=== PATIENT | male | born 1955 | race Caucasian/White ===

== ENCOUNTER 2017-02-20 14:08 | Observation (INO) ==
[2017-02-20] MEDS ORDERED: NS 500 ML ONE (18:51)
[2017-02-20] MEDS ORDERED: TYLENOL PO ONE (19:45)
[2017-02-20] MEDS ORDERED: BENADRYL IV ONE (19:45)
[2017-02-20] MEDS ORDERED: LASIX IV ONE (19:46)
[2017-02-21 13:22] LABS: EOS# 0.09 X1000 (0.0-0.7); EOS% 1.1 % (0.0-10.0); HEMATOCRIT 30.1 % (42.0-52.0); HEMOGLOBIN 9.8 g/dL (14.0-18.0); IMM GRAN# 0.08 X1000 (0.0-0.04); LYMPH# 1.54 X1000 (1.2-3.4); LYMPH% 19.4 % (20.5-51.1); MANUAL DIFF NEEDED? YES; MCH 28.7 PG (27-31); MCHC 32.6 g/dL (33-37); MCV 88.3 FL (81-99); MONO# 0.63 X1000 (0.11-0.59); MONO% 7.9 % (1.7-9.3); MPV 8.7 FL (7.4-10.4); NEUT% 69.6 % (42.2-75.2); PLT 226 X1000 (130-400); RBC 3.41 XMIL (4.7-6.1)
[2017-02-21 13:50] LABS: LYMPHS 12 % (21-51); MONO 3 % (1-9)
[2017-02-21] MEDS ORDERED: XANAX PO PRN (17:05)
[2017-02-21] MEDS ORDERED: ZOFRAN PO PRN (17:05)
[2017-02-21] MEDS ORDERED: BIDEX PO PRN (17:05)
--- NOTE | 2017-02-21 17:08 | CONSULTATION ---
DATE OF CONSULTATION: 02/21/2017 REASON FOR REFERRAL: Anemia, GI bleed. Patient reports after following with Dr. Meraz for his chemotherapy yesterday he was found to have a Hemoccult-positive stool and anemia. He was transferred to the hospital for admission. Information is obtained from the patient and his . He reports in November he was admitted to the hospital after having episodes of dizziness and passing out. During evaluation, he was diagnosed with renal cancer. He had surgery in November by Dr. Bhandari. He has been following with Dr. Meraz for chemotherapy. Over the last several months he has noticed black stools. He states they are not coffee-ground, but dark black. He also reports episodes of diarrhea versus constipation. No reported nausea or vomiting. He reports occasional abdominal pain. He does report dizziness and lightheadedness. He denies chest pain. He reports shortness of breath. He does have a history of sleep apnea and uses a CPAP machine. He has a history of CVA. He reports abdominal gas. He states he has never had an EGD or colonoscopy. Patient has a history of blood clots in the left jugular, left arm, right knee and below the knee. He is on Xarelto. He reports his last dose was on Sunday. PAST MEDICAL HISTORY: Recent diagnosis of kidney cancer, status post surgery and currently undergoing chemotherapy. History of blood clots, diabetes, history of stroke. PAST SURGICAL HISTORY: Kidney surgery related to kidney cancer in November. CURRENT MEDICATIONS: He has a port placed into the right chest. History of tonsillectomy. Multiple cystectomy. Teeth removal. Sinus surgery. Plastic surgery. SOCIAL HISTORY: He is . He works at [employer]. He has 3 children. He is a former smoker. ALLERGY: Fentanyl causing confusion. Penicillin causing shortness of breath. HOME MEDICATIONS: Guaifenesin as needed. Hydroxyzine 10 mg as needed. Lunesta 3 mg daily. Insulin Humulin R as needed. Xanax 0.5 mg twice a day as needed. Zolpidem 12.5 mg every night. Xarelto 20 mg daily. Zofran 4 mg every 4 hours as needed. [place] 10/325, 1 every 4 hours as needed. Glucophage 500 twice a day. Lantus 35 units subcutaneous daily. Cymbalta 60 mg in the morning. Cymbalta 30 mg at night. Niaspan 500 mg twice a day. Glyburide 5 mg 3 times a day. Lasix 80 mg daily. Janumet 5/500 twice a day. Potassium 10 mEq daily. Zocor 20 mg twice a day. REVIEW OF SYSTEMS: HEENT: Report some dizziness and lightheadedness. He has had presyncopal episodes per his report. Cardiovascular: No reported chest pain or palpitations. Pulmonary: Report some shortness of breath. He does have a history of sleep apnea and uses a CPAP machine at home. GI: Per HPI. : With recent diagnosis of kidney cancer status post surgery and currently receiving chemotherapy, followed by Dr. Meraz. Neurological: History of CVA. Other history of blood clots to the left jugular, left arm, right leg. PHYSICAL EXAMINATION: Vital signs: Temperature 98.3 degrees, pulse 109, respirations 18, blood pressure 125/64. General: Patient is awake and alert, in no acute distress. HEENT: Normocephalic, atraumatic. Pupils equal, round, reactive to light. Cardiovascular: Regular rate and rhythm. Respiratory: Lungs sound essentially clear bilaterally. Abdomen: Morbidly obese. Abdomen is mildly tender with palpation, but soft with positive bowel sounds. Neurologically: Cranial nerves 2-12 grossly intact. Patient is awake, alert, oriented to person, place and time. Extremities: Discoloration to bilateral lower extremities. Pedal pulses stronger on left than right pedal area. He does have history of blood clots in the right lower leg. DIAGNOSTIC RESULTS: Laboratory: Hematology: White count 7.95, hemoglobin 9.8, hematocrit 30.1, MCV 88.3, platelet 226,000. Chemistry from Dr. Meraz's office yesterday on 02/20/2017 showed sodium 129, potassium 3.8, chloride 95, CO2 22.6, BUN 22, creatinine 1.36, glucose 404. ASSESSMENT AND PLAN: 1. Anemia. 2. Hemoccult-positive stool. 3. Dizziness/presyncope. 4. Melena. 5. History of renal cell carcinoma, status post surgery. 6. Chemotherapy treatment. 7. Anticoagulation use due to history of blood clots. 8. History of blood clots. 9. Sleep apnea. 10. Diabetes. 11. History of cerebrovascular accident. PLAN: Continue supportive care. Continue to monitor hemoglobin and hematocrit. Monitor for active bleeding. We will plan to proceed with esophagogastroduodenoscopy tomorrow. Further plans will be made according to findings. I have discussed the plan with the patient, along with benefits and risks of the procedure and he wishes to proceed. I have discussed this case with Dr. Lopez. Continue to monitor hemoglobin and hematocrit. Transfuse packed red blood cells as needed. Further plans to be made according to findings. Thank you for this consult. Dictated by MARICARMEN Baum for Gentry Lopez MD cc: MARICARMEN Deleon MD Sammy Becdach, MD
[2017-02-21] MEDS: CYMBALTA PO SCH ×3 (17:36→21:30)
[2017-02-21] MEDS: LASIX PO SCH (17:36)
[2017-02-21] MEDS: KLOR-CON PO SCH (17:37)
[2017-02-21] MEDS: HYDROXYZINE PO PRN ×2 (17:53→23:43)
[2017-02-21] MEDS: HUMULIN R SUBQ SCH (17:54)
[2017-02-21] MEDS: NORCO-10 PO PRN ×2 (19:40→23:31)
[2017-02-21] MEDS: JANUVIA PO SCH ×2 (19:40→21:31)
[2017-02-21] MEDS: ZOCOR PO SCH ×2 (19:40→21:31)
[2017-02-21] MEDS: GLUCOPHAGE PO SCH ×2 (19:40→21:31)
[2017-02-21] MEDS ORDERED: GLUCOPHAGE PO SCH (21:00)
[2017-02-21] MEDS: NIASPAN PO SCH (21:31)
[2017-02-22] MEDS: NORCO-10 PO PRN (02:17)
[2017-02-22] MEDS: HUMULIN R SUBQ SCH ×4 (03:15→17:00)
[2017-02-22] MEDS: HYDROXYZINE PO PRN (06:01)
[2017-02-22] MEDS ORDERED: INSULIN PEN NEEDLES ONE (07:17)
[2017-02-22] MEDS ORDERED: LANTUS SUBQ SCH (09:00)
[2017-02-22] MEDS ORDERED: DIPRIVAN 1% ONE (14:16)
[2017-02-22] MEDS ORDERED: ANESTHESIA PB SET 88 IN 5742 ONE (14:28)
[2017-02-22] MEDS ORDERED: LR 500 ML ONE (14:28)
[2017-02-22] MEDS ORDERED: XYLOCAINE-MPF 2% ONE (14:28)
[2017-02-22 15:12] VITALS: BP 121/44
[2017-02-22] MEDS: DIABETA PO SCH ×3 (15:44→16:58)
[2017-02-22] MEDS: JANUVIA PO SCH (15:44)
[2017-02-22] MEDS: GLUCOPHAGE PO SCH (15:44)
[2017-02-22] MEDS: NIASPAN PO SCH (15:46)
[2017-02-22] MEDS: ZOCOR PO SCH (15:46)
[2017-02-22] MEDS: KLOR-CON PO SCH (16:57)
[2017-02-22] MEDS: CYMBALTA PO SCH (16:57)
[2017-02-22] MEDS: LASIX PO SCH (16:58)
[2017-02-22] MEDS ORDERED: HEPARIN ONE (17:46)
[2017-02-22] MEDS ORDERED: AMBIEN PO SCH (21:00)
--- NOTE | 2017-02-22 22:39 | OPERATIVE NOTE ---
PROCEDURE DATE: 02/22/2017 PROCEDURE: Esophagogastroduodenoscopy and hemorrhage control. PREOPERATIVE DIAGNOSIS: 1. Gastrointestinal bleed. 2. Anemia secondary to gastrointestinal bleed. POSTOPERATIVE DIAGNOSIS: Erosive gastritis in body and antrum, treated. MEDICATION: MAC as per Anesthesia. SCOPE USED: Olymp[employer] GIF HQ190. HISTORY: This is a 61-year-old, white male admitted to the hospital with history of melena and was found to be anemic requiring transfusion. Endoscopy was done for diagnostic as well as therapeutic purposes. DESCRIPTION OF PROCEDURE: Informed consent was obtained from the patient. The procedure, risks, benefits, alternatives were explained in layman's terms. He understood. All his pertinent questions were answered. Patient was brought to the endoscopy unit and was premedicated as per Anesthesia. After adequate sedation, while he was lying in left lateral position, the gastroscope was introduced into the posterior pharynx and advanced under direct vision into the esophagus. Esophagus in its entire length appeared to be normal. No esophagitis, webs, rings, varices were seen. Scope was then passed through the esophagus into the stomach. Stomach was examined both in straight and retroflexed view, which revealed erosive gastritis in the upper part of the body close to the fundus. These were linear erosions and had hemorrhaging spot or visible vessel, most likely the source of his bleeding when he was coagulopathic. Using the heater probe, cauterized the spot applying 10-15 joules of current multiple times getting good cautery. There was another lesion seen at the antrum just at the pyloric area which appeared to be hyperemic and oozing. I used the heater probe and cauterized this also with 15 joules of current with multiple applications. I did not see any other AVM or mass or bleeding. The scope was then passed through the pylorus into the duodenal bulb, and then 2nd part of duodenum. Both appeared to be normal. Again, no evidence of active bleeding or stigmata of recent bleed seen in the duodenum. The scope was withdrawn. Patient tolerated the procedure well. No complications noted. Patient was then transferred to the recovery area in a stable condition. IMPRESSION: Erosive gastritis most likely the source of bleeding, treated. RECOMMENDATION: I would continue proton pump inhibitor and use the anticoagulant judiciously. Recheck hemoglobin and hematocrit and transfuse as necessary. Patient tells me that he has never had a colonoscopy. He will need that. This can be done as an outpatient once he is stable. I will hold off anticoagulation until he gets his colonoscopy within a week or so. I have explained the findings and plan to the patient. He understands. All his pertinent questions answered. cc: MD Miah Aly MD
--- NOTE | 2017-02-23 14:08 | HISTORY AND PHYSICAL ---
CHIEF COMPLAINT: Profound anemia with fecal occult blood test positive. HISTORY OF PRESENT ILLNESS: Mr. 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 He is currently being treated with Torisel. The patient presented to clinic with complaints of severe fatigue. CBC was obtained and hemoglobin was found to be 6.7. Additionally the patient underwent fecal occult blood testing which was positive. Patient is being admitted for transfusion of packed red blood cells as well as GI workup to determine source of potential GI bleed. PAST MEDICAL HISTORY: 1. History of DVT and PE. 2. Hypertension. 3. Diabetes mellitus type 2. 4. Stage IV renal cell clear cell carcinoma. 5. Anemia. FAMILY HISTORY: Negative for any hematologic or oncologic problem. SOCIAL HISTORY: The patient does smoke 1 pack cigarettes daily. He does not use alcohol or illicit drugs. MEDICATIONS ON ADMISSION: 1. Klor-Con. 2. Glyburide. 3. Xanax. 4. Janumet. 5. Lasix. 6. Lantus insulin. 7. Cymbalta. 8. Xarelto. 9. Hydrocodone/acetaminophen. 10. Zolpidem. 11. Benadryl. 12. Zofran ODT. 13. Mucinex. 14. Magic mouthwash. 15. Humulin R insulin. 16. Hydroxyzine. 17. Lunesta. ALLERGIES: Fentanyl patch, Mobic and penicillins. REVIEW OF SYSTEMS: A 14 point review of systems was obtained and is negative except for as mentioned in HPI. PHYSICAL EXAM: Mr. Cameron is a 61-year-old male, well developed, morbidly obese lying supine in bed in no immediate distress. VITAL SIGNS: Temperature 98.3, blood pressure 125/64, heart rate 109, respirations 18, O2 saturation is 94% on room air. HEENT: Normocephalic, atraumatic. Mucous membranes are pink and moist. Sclerae is anicteric. Extraocular movements intact. NECK: Supple. LUNGS: Clear to auscultation bilaterally. Chest expansion is equal bilaterally. CV: S1, S2 is heard without murmur, rub or gallop. ABDOMEN: Soft, obese, nondistended, nontender. Bowel sounds are positive in all quadrants. No rebound or guarding noted. EXTREMITIES: Without clubbing, cyanosis, or edema. DERMATOLOGIC: No rashes, bruises or lesions. NEUROLOGIC: The patient is awake, alert, and oriented x3. He has no focal deficit at this time. LABORATORY DATA: Hemoglobin 6.7, hematocrit 21.9, white blood cell count 8.5, platelets 243,000, ANC 5.4. Sodium 129, potassium 3.8, chloride 95, CO2 is 22.6, BUN 22.0, creatinine 1.36, glucose 404. LFTs are within normal limits. ASSESSMENT AND PLAN: 1. Symptomatic anemia with a hemoglobin of 6.7 and a fecal occult blood test that is positive. We will transfuse 3 units packed red blood cells. Additionally, we will consult Dr. Lopez for GI evaluation with EGD plus or minus colonoscopy. 2. Stage IV renal clear cell carcinoma currently on Torisel. We will hold treatment until the patient's acute illness passes. 3. Recent deep vein thrombosis on Xarelto. We will hold Xarelto secondary to bleeding. We will ordered SCDs for DVT prophylaxis. 4. Uncontrolled diabetes mellitus type 2. We will place the patient on a sliding scale insulin level 2. 5. We will make further recommendations pending outcomes. The above reflects the history exam, assessment and plan of Dr. Meraz. Dictated by MARICARMEN Means for Miah Meraz MD cc: MARICARMEN Means MD
--- NOTE | 2017-02-23 16:54 | DISCHARGE SUMMARY ---
ADMISSION DATE: 02/20/2017 DISCHARGE DATE: 02/22/2017 ADMITTING PHYSICIAN: Dr. Miah Meraz CONSULTATIONS: Gentry Lopez MD HISTORY OF PRESENT ILLNESS/HOSPITAL: Mr. David Cameron is a patient who is well known to us with a history of stage IV renal clear cell carcinoma currently on Torisel. The patient presented to the [facility] for follow up with Dr. Meraz. On the day of hospital admission he had reports of profound fatigue. CBC was obtained and hemoglobin was found to be 6.7. Additionally the patient was tested for fecal occult blood and was found to be positive. It was decided that the patient would be admitted for transfusion of packed red blood cells as well as GI work up. The patient was seen by Dr. Lopez in consult who proceeded with an EGD. EGD revealed erosive gastritis which was most likely the source of bleeding. The patient was plus place skis may the patient was placed on a proton pump inhibitor with recommendations for anticoagulant use judiciously. Additionally, the patient has been scheduled for outpatient colonoscopy by Dr. Lopez and will continue off anticoagulation until after the colonoscopy. Upon discharge the patient's hemoglobin was found to be 9.8. The patient reported much improvement in his symptoms of fatigue. On discharge the patient was deemed appropriate for discharge. He will follow up in clinic with Dr. Meraz in 1 week. DISCHARGE MEDICATIONS: 1. Klor-Con. 2. Glyburide. 3. Xanax. 4. Janumet. 5. Lasix. 6. Lantus insulin. 7. Cyanocobalamin. 8. Cymbalta. 9. Xarelto. 10. [place]. 11. Zolpidem. 12. Benadryl. 13. Zofran. 14. Mucinex. 15. Magic mouthwash. 16. Humulin R insulin. 17. Hydroxyzine. 18. Lunesta. DISCHARGE INSTRUCTIONS: The patient has been instructed to return to the emergency department or call with any rectal bleeding, or with any worsening of symptoms. The above reflects the history, exam, assessment and plan of Dr. Meraz. Dictated by MARICARMEN Means for Miah Meraz MD cc: MARICARMEN Means MD
== END 2017-02-22 18:40 | disposition home or self-care (01) ==
LOC: DIRADM → 3N 16:54
PROVIDERS: ADMIT Internal Medicine Hematology & Oncology; ATTEND Internal Medicine Hematology & Oncology
PROC: EN.HEAT (2017-02-22 13:39)

== ENCOUNTER 2017-03-08 13:55 | Inpatient (IN) ==
--- NOTE | 2017-03-08 15:37 | Diag Imaging Result Document ---
PROCEDURE NAME: CHEST-PORTABLE - 03/08/2017 PORTABLE CHEST X-RAY: COMPARISON: 12/22/2016. FINDINGS: There is a stable right chest port. Stable cardiomegaly. There is worsening pulmonary vascular congestion. There are diffuse central infiltrates bilaterally suggesting pulmonary edema. No pneumothorax or large effusion. IMPRESSION: Cardiomegaly. Probable pulmonary edema.
[2017-03-08 15:51] LABS: ALLEN TEST YES; BE 4.8 mmoll (-3.0-3.0); BLOOD TYPE ARTERIAL; DRAW SITE R RADIAL; METHB 1.5 % (0.0-1.5); O2(CT) 12.8 mL/dL (15.0-23.0); PCO2(98.6) 49 mmHg (35-45); PO2(98.6) 83 mmHg (60-100); SAMPLE BLOOD; SAO2 98.1 % (95.0-100.0); THB 9.6 g/dL (11.5-17.4)
[2017-03-08 15:52] LABS: MODALITY CANNULA
[2017-03-08 15:57] LABS: MANUAL DIFF NEEDED? NO
[2017-03-08 16:05] LABS: BASO% 0.3 % (0.0-0.8); EOS# 0.01 X1000 (0.0-0.7); EOS% 0.1 % (0.0-10.0); HEMATOCRIT 31.2 % (42.0-52.0); HEMOGLOBIN 9.3 g/dL (14.0-18.0); IMM GRAN# 0.02 X1000 (0.0-0.04); IMM GRAN% 0.2 % (0.0-0.5); LYMPH# 0.93 X1000 (1.2-3.4); LYMPH% 8.5 % (20.5-51.1); MCH 28.1 PG (27-31); MCHC 29.8 g/dL (33-37); MCV 94.3 FL (81-99); MONO# 0.77 X1000 (0.11-0.59); MPV 8.4 FL (7.4-10.4); NEUT% 83.9 % (42.2-75.2); PLT 407 X1000 (130-400); RBC 3.31 XMIL (4.7-6.1)
[2017-03-08 16:14] LABS: INR 1.28; PROTIME 13.6 Seconds (9.2-11.7)
[2017-03-08 16:18] LABS: PTT 56.3 Seconds (22.0-36.0)
[2017-03-08 16:20] LABS: AGAP 13; ALBUMIN 3.6 g/dL (3.5-5.0); ALKALINE PHOSPHATASE 93 U/L (32-122); BUN 16 mg/dL (8-22); CALCIUM 9.1 mg/dL (8.8-10.2); CHLORIDE 93 mmol/L (98-107); CK PROFILE 130 U/L (24-204); COSMO 275; GOT 18 U/L (10-34); GPT 8 U/L (10-44); MAGNESIUM 2.1 mg/dL (1.5-2.7); POTASSIUM 4.5 mmol/L (3.5-5.1); SODIUM 133 mmol/L (136-145); TCO2 27 mmol/L (25-35); TOTAL BILIRUBIN 0.46 mg/dL (0.20-1.00)
--- NOTE | 2017-03-08 19:06 | PROVIDER DOCUMENTATION ---
HPI-Fever - General Chief Complaint: Possible Sepsis-D Stated Complaint: AMS/WEAKNESS Time Seen by Provider: 03/08/17 14:42 Source: patient, old records Allergies/Adverse Reactions: Patient Allergies Allergy/AdvReac Type Severity Reaction Status Date / Time fentanyl Allergy Unknown Unknown Verified 03/08/17 14:43 Penicillins Allergy Unknown SHORTNESS Verified 03/08/17 14:43 OF BREATH Home Medications: Home Medication List Medication Instructions Recorded Confirmed Last Taken Type Alprazolam [Xanax] 0.5 mg PO BID PRN 07/05/14 03/08/17 02/26/17 History Furosemide [Lasix] 80 mg PO DAILY 07/05/14 03/08/17 03/08/17 09:00 History Glyburide 5 mg PO TID 07/05/14 03/08/17 03/08/17 09:00 History Insulin Glargine [Lantus] 35 units SUBQ QAM 07/05/14 03/08/17 03/08/17 09:00 History Metformin [Glucophage] 1,000 mg PO BID 07/05/14 03/08/17 03/08/17 09:00 History Potassium Chloride E.r. [Klor-Con] 10 meq PO DAILY 07/05/14 03/08/17 03/08/17 09 :00 History Sitagliptin Phos/Metformin HCl 1 each PO BID 07/05/14 03/08/17 03/08/17 09:00 History [Janumet 50-500 mg Tablet] Duloxetine [Cymbalta] 60 mg PO QAM 11/11/16 03/08/17 03/08/17 09:00 History Guaifenesin 1,200 mg PO DAILY PRN 11/11/16 03/08/17 03/08/17 09:00 History SIMVAstatin [Zocor] 20 mg PO BID #0 tablet 11/27/16 03/08/17 03/08/17 09:00 Rx Hydrocodone/Acetaminophen [[place] 1 each PO Q4H PRN PRN #20 tablet 12/22/1603/0802/26/17 Rx 10-325 Tablet] Ondansetron HCl [Zofran] 4 mg PO Q4H PRN PRN #20 tablet 02/10/17 04/27/17 04/17/ 17 Rx Duloxetine [Cymbalta] 30 mg PO QHS 02/08/17 03/08/17 03/07/17 21:00 History Niacin E.r. [Niaspan] 500 mg PO BID 02/08/17 03/08/17 03/08/17 09:00 History Eszopiclone [Lunesta] 3 mg PO DAILY 02/14/17 03/08/17 03/08/17 09:00 History Hydroxyzine HCl 10 mg PO BID PRN PRN 02/14/17 03/08/17 02/26/17 History Insulin Regular, Human [Humulin R] See Protocol SQ 4XDAY PRN PRN 02/20/1702/25/17 History Rivaroxaban [Xarelto] 10 mg PO DAILY 02/20/17 03/08/17 03/08/17 09:00 History Zolpidem Tartrate [Zolpidem 12.5 mg PO QHS 02/20/17 03/08/17 03/07/17 21:00 History Tartrate ER] Omeprazole 40 mg PO DAILY #30 capsule. 02/22/17 03/08/17 03/08/17 09:00 Rx - History of Present Illness-Fever Nature of Presenting Problem: 61 yo WM brought to ER brandon of fever and AMS. He is a poor historian but reviewing the chart, I see that he was found to have renal cell cancer in Nov of this year and is being followed by Dr Grider. He does have a port, but states that he is not on chemotherapy. Fever Severity/Quality: reports: low grade Onset/Duration: reports: unsure Severity: reports: moderate Context: reports: decreased mental status, confusion, indwelling CVC Recent Illness?: reports: other (see HPI) Fever Therapy SYSTEMS DEVELOPMENT CONSULTANT: Initiated Ibuprofen Cognitive Baseline: alert, oriented x3 Associated Symptoms: reports: fatigue, fever/chills, loss of appetite Similar Symptoms Previously?: Yes Recently seen or treated by another doctor?: Yes - Glascow Coma Score Best Eye Response (Albert): (4) open spontaneously Best Verbal Response (Albert): (4) confused conversation Best Motor Response (Albert): (6) obeys commands Albert Total: 14 Review of Systems - Adult - REVIEW OF SYSTEMS - ADULT Constitutional: reports: see HPI Eyes: reports: no symptoms reported Ears, Nose, Mouth & Throat: reports: no symptoms reported Cardiovascular: reports: edema, orthopnea, poor circulation Respiratory: reports: cough, shortness of breath Gastrointestinal: reports: abdominal pain Genitourinary: reports: frequent UTI's Musculoskeletal: reports: no symptoms reported Integumentary: reports: skin sores/ulcer, skin thickening Neurological: reports: see HPI Psychiatric: reports: no symptoms reported Endocrine: reports: no symptoms reported Hematologic/Lymphatic: reports: low blood count Allergic/Immunologic: reports: no symptoms reported Past History - Adult - PAST MEDICAL HISTORY-ADULT Review of Records: reports: Old Records Reviewed, Nursing Assessment Review, Medications Reviewed Cardiovascular: reports: CAD, CHF, HTN Respiratory: reports: COPD, sleep apnea Gastrointestinal: reports: GERD Musculoskeletal: reports: chronic pain Endocrine/Immune: reports: other (DVT) - IMMUNIZATION STATUS Childhood Immunizations: See Nurse Assessment Flu Vaccine: See Nurse Assessment Physical Exam-General - PHYSICAL EXAM-ADULT Initial Vital Signs Reviewed: Yes - CONSTITUTIONAL General Appearance: alert, obese, slow to respond - EYES Eyes: PERRL/EOMI, pink conjunctivae - HEAD, EARS, NOSE, MOUTH & THROAT HENMT: normocephalic/atraumatic - NECK Neck: non-tender, full range of motion, supple, normal inspection - RESPIRATORY Respiratory: no respiratory distress, rales, increased rate. negative: lungs clear, normal breath sounds, no pleuratic chest pain - CARDIOVASCULAR Cardiovascular: regular rate, rhythm, no gallop, no JVD, tachycardia. negative : no edema, gallop/S3 - GASTROINTESTINAL (ABDOMEN) Abdominal Exam: non tender, no organomegaly, no pulsatile mass, mass - LYMPHATIC Lymphatic: no adenopathy - MUSCULOSKELETAL Back Exam: normal inspection Extremity: normal range of motion, non-tender Peripheral Pulses: radial (R): 1+, radial (L): 1+ - SKIN Integumentary: normal color, normal turgor, rash - NEUROLOGIC Neurologic: grossly normal - PSYCHIATRIC Psych/Mental Status: negative: normal thought content Progress - PLAN OF CARE/RESULTS Progress/Plan/Lab Results: Vital Signs - 8 hr 03/08/17 14:00 03/08/17 15:40 Temperature 99.4 F Pulse Rate 118 H Respiratory Rate 38 H Blood Pressure 144/107 O2 Sat by Pulse Oximetry 83 L 96 Laboratory Results - last 24 hr 03/08/17 03/08/17 03/08/17 15:30 15:30 15:30 WBC 11.00 H RBC 3.31 L Hgb 9.3 L Hct 31.2 L MCV 94.3 MCH 28.1 MCHC 29.8 L RDW Std Deviation 18.7 H Plt Count 407 H MPV 8.4 Immature Gran % (Auto) 0.2 Neut % (Auto) 83.9 H Lymph % (Auto) 8.5 L Coke % (Auto) 7.0 Eos % (Auto) 0.1 Baso % (Auto) 0.3 Immature Gran # (Auto) 0.02 Neut # (Auto) 9.24 H Lymph # (Auto) 0.93 L Coke # (Auto) 0.77 H Eos # (Auto) 0.01 Baso # (Auto) 0.03 PT INR PTT (Actin FS) Specimen Type Sample Site pH pCO2 pO2 HCO3 Base Excess Oxyhemoglobin ABG O2 Sat (Calculated) ABG O2 Saturation ABG Carboxyhemoglobin ABG Methemoglobin Eddi Test A-a O2 Difference Total Hemoglobin Lactate Liter Flow Blood Gas Modality FiO2 % Sodium 133 L Potassium 4.5 Chloride 93 L Carbon Dioxide 27 Anion Gap 13 BUN 16 Creatinine 1.1 Estimated GFR/1.73 m2 > 60 BUN/Creatinine Ratio 15 Glucose 238 H Calculated Osmolality 275 Calcium 9.1 Magnesium 2.1 Total Bilirubin 0.46 AST 18 ALT 8 L Alkaline Phosphatase 93 Creatine Kinase 130 Troponin T Total Protein 7.0 Albumin 3.6 Globulin 3.4 Albumin/Globulin Ratio 1.1 Plasma Lactate 0.9 03/08/17 03/08/17 03/08/17 15:30 15:30 15:40 WBC RBC Hgb Hct MCV MCH MCHC RDW Std Deviation Plt Count MPV Immature Gran % (Auto) Neut % (Auto) Lymph % (Auto) Coke % (Auto) Eos % (Auto) Baso % (Auto) Immature Gran # (Auto) Neut # (Auto) Lymph # (Auto) Coke # (Auto) Eos # (Auto) Baso # (Auto) PT 13.6 H INR 1.28 PTT (Actin FS) 56.3 H Specimen Type ARTERIAL Sample Site R RADIAL pH 7.40 pCO2 49 H pO2 83 HCO3 28.6 H Base Excess 4.8 H Oxyhemoglobin 93.8 L ABG O2 Sat (Calculated) 12.8 L ABG O2 Saturation 98.1 ABG Carboxyhemoglobin 2.90 H ABG Methemoglobin 1.5 Eddi Test YES A-a O2 Difference 112.0 Total Hemoglobin 9.6 L Lactate 0.90 Liter Flow 4.0 Blood Gas Modality CANNULA FiO2 % 36.0 Sodium Potassium Chloride Carbon Dioxide Anion Gap BUN Creatinine Estimated GFR/1.73 m2 BUN/Creatinine Ratio Glucose Calculated Osmolality Calcium Magnesium Total Bilirubin AST ALT Alkaline Phosphatase Creatine Kinase Troponin T 0.167 H Total Protein Albumin Globulin Albumin/Globulin Ratio Plasma Lactate 03/08/17 03/08/17 19:40 19:40 WBC RBC Hgb Hct MCV MCH MCHC RDW Std Deviation Plt Count MPV Immature Gran % (Auto) Neut % (Auto) Lymph % (Auto) Coke % (Auto) Eos % (Auto) Baso % (Auto) Immature Gran # (Auto) Neut # (Auto) Lymph # (Auto) Coke # (Auto) Eos # (Auto) Baso # (Auto) PT INR PTT (Actin FS) Specimen Type Sample Site pH pCO2 pO2 HCO3 Base Excess Oxyhemoglobin ABG O2 Sat (Calculated) ABG O2 Saturation ABG Carboxyhemoglobin ABG Methemoglobin Eddi Test A-a O2 Difference Total Hemoglobin Lactate Liter Flow Blood Gas Modality FiO2 % Sodium Potassium Chloride Carbon Dioxide Anion Gap BUN Creatinine Estimated GFR/1.73 m2 BUN/Creatinine Ratio Glucose Calculated Osmolality Calcium Magnesium Total Bilirubin AST ALT Alkaline Phosphatase Creatine Kinase 123 Troponin T 0.162 H Total Protein Albumin Globulin Albumin/Globulin Ratio Plasma Lactate Orders Category Date Time Status Cardiac Monitoring DIRECTED Care 03/08/17 14:44 Active IV Insertion ORDERED Care 03/08/17 14:44 Completed Notify MD of + Sepsis Screen NOW Care 03/08/17 14:44 Active CHEST-PORTABLE [RAD] Stat Exams 03/08/17 14:44 Completed HEAD W/O CONTRAST [CT] Stat Exams 03/08/17 18:57 Taken ABG [RESP] Routine Lab 03/08/17 15:40 Completed BLOOD CULTURE [BLDCUL] Stat Lab 03/08/17 15:30 Results BNP [PRO B-NATRIURETIC PEPTIDE] Stat Lab 03/08/17 20:43 Ordered CBC WITH DIFF [HEME] Stat Lab 03/08/17 15:30 Completed CK PROFILE [SP CHEM] Stat Lab 03/08/17 15:30 Completed CK PROFILE [SP CHEM] Stat Lab 03/08/17 19:40 Completed COMPREHENSIVE METABOLIC PANEL [CHEM] Stat Lab 03/08/17 15:30 Completed LACTATE, PLASMA [CHEM] Stat Lab 03/08/17 15:30 Completed MAGNESIUM [CHEM] Stat Lab 03/08/17 15:30 Completed PROTIME WITH INR [COAG] Stat Lab 03/08/17 15:30 Completed PTT [COAG] Stat Lab 03/08/17 15:30 Completed TROPONIN T Stat Lab 03/08/17 15:30 Completed TROPONIN T Stat Lab 03/08/17 19:40 Completed URINALYSIS W/POSS RFLX CULT-1 [URINALYSIS] Stat Lab 03/08/17 14:44 Uncollected Albuterol [Albuterol Neb] Med 03/08/17 20:43 Discontinued 5 mg INH NOW ONE Furosemide [Lasix] Med 03/08/17 20:44 Discontinued 40 mg IV NOW ONE Nitroglycerin Med 03/08/17 20:45 Discontinued 1 inch TOP NOW ONE Nitroglycerin Sl [Nitroglycerin] Med 03/08/17 20:45 Discontinued 0.4 mg SL NOW ONE Aerosol Treatments Routine Oth 03/08/17 20:44 Active Aerosol Treatments Stat Oth 03/08/17 20:44 Active BIPAP Stat Oth 03/08/17 20:46 Active Oxygen Device Stat Oth 03/08/17 14:44 Completed EKG [EKG] Stat Ther 03/08/17 18:58 Ordered EKG [EKG] Stat Ther 03/08/17 19:04 Ordered Result Diagrams: 03/08/17 15:30 03/08/17 15:30 - REASSESSMENT Reassessment #1 Time Reassessed: 19:32 (CT pending, CT 11/14 neg mets) Status: unchanged Reassessment #2 Time Reassessed: 19:36 (Trop slightly pos, probably sepsis, no EKG changes) Status: unchanged - CHANGE OF SHIFT REPORT (ED Provider) Report Given and Care Transferred to:: Dr Souza Time of Transfer: 19:35 Items Pending: CT/MRI Results Departure - Departure Time of Disposition Decision: 20:50 DIAGNOSIS: Acute pulmonary edema Disposition: ADMITTED INPATIENT 09 Certified Medical Emergency: Emergent Condition: Fair Referrals and Follow-Ups: None,PCP [Primary Care Provider] - - Critical Care Note This patient required my direct personal management.: No
[2017-03-08] MEDS ORDERED: ALBUTEROL NEB INH ONE (20:43)
[2017-03-08] MEDS ORDERED: LASIX IV ONE (20:44)
[2017-03-08] MEDS ORDERED: NITROGLYCERIN SL ONE (20:45)
[2017-03-08] MEDS ORDERED: NITROGLYCERIN TOP ONE (20:45)
--- NOTE | 2017-03-08 20:50 | ED EKG INTERP ---
This chart was entered by Olivia Bruce Scribe, acting as scribe for Saul Hall MD. EKG Interpretation - EKG Time of EKG reading by physician:: 19:42 EKG Read and Signed by:: Saul Hall EKG Interpretation (*Must complete 3 of following elements*): Abnormal Rate: 131 Rhythm: Sinus Tachycardia ST Wave: non-specific ST changes Comments: Abnormal ECG Attestation - Physician/ JIA Attestation Patient care was provided by Advanced Practice Provider:: No This chart was documented by the indicated scribe, (Olivia Bruce Scribe) and accurately reflects the services I performed and decisions made by me, Saul Hall MD, as attested by the provider's signature.
[2017-03-08 21:36] LABS: URINE MICRO REVIEW NEEDED? NO; URINE SOURCE CLEAN CATCH
[2017-03-08 21:41] LABS: BILIRUBIN URINE NEGATIVE (NEGATIVE); BLOOD URINE LARGE (NEGATIVE); COLOR ORANGE; GLUCOSE URINE 300 mg/dL (NEGATIVE); LEUKOCYTES URINE TRACE (NEGATIVE); NITRITE URINE NEGATIVE (NEGATIVE); PROTEIN URINE 600 mg/dL (NEGATIVE); SP GRAVITY URINE 1.009; TURBIDITY URINE HAZY (CLEAR); UROBILINOGEN URINE NORMAL (NORMAL)
[2017-03-08 21:42] LABS: UR EPITHELIAL CELLS <10 /HPF (<10); URINE BACTERIA NEGATIVE /HPF; URINE CULTURE NEEDED? YES; URINE RBC TNTC /HPF (<10); URINE WBC TNTC /HPF (<10)
--- NOTE | 2017-03-08 21:56 | Diag Imaging Result Document ---
PROCEDURE NAME: HEAD W/O CONTRAST - 03/08/2017 CT BRAIN WITHOUT CONTRAST: COMPARISON: 11/13/2016. FINDINGS: No parenchymal hemorrhage. No epidural or subdural hematoma. No subarachnoid hemorrhage. There are chronic microvascular ischemic changes with an old lacune bilaterally in the basal ganglia. No hydrocephalus. No sinus opacification. IMPRESSION: 1. No hemorrhage. 2. Chronic microvascular ischemic changes with old bilateral lacunes. A preliminary report was given at 8:12 p.m.
[2017-03-09] MEDS ORDERED: SALINE LOCK IV FLUID XX ONE (00:13)
[2017-03-09] MEDS ORDERED: HYDROXYZINE PO PRN (00:13)
[2017-03-09] MEDS ORDERED: LASIX IV SCH (00:13)
[2017-03-09] MEDS: XANAX PO PRN (02:47)
[2017-03-09] MEDS: NITROGLYCERIN TOP SCH ×4 (04:10→20:17)
[2017-03-09] MEDS: TYLENOL PO PRN ×2 (05:20→23:46)
--- NOTE | 2017-03-09 05:28 | HISTORY AND PHYSICAL ---
PRIMARY CARE PHYSICIAN: Dr. Sepulveda. CHIEF COMPLAINT: Shortness of breath for several days. HISTORY OF PRESENTING ILLNESS: A 61-year-old obese male with a history of renal cell carcinoma, diabetes mellitus type 2, hypertension, and bilateral lower extremity DVTs. Had presented to the emergency department complaining of shortness of breath for the past several days. He states today he was having more difficulty breathing. He thought his nose was congested due to having some sinus troubles. However, his breathing problems worsened, and subsequently he had to come to the emergency department. In the ER, he was evaluated. He was found to be in florid pulmonary edema. He was put on BiPAP, and given some IV diuresis, and he seemed to have some improvement. The patient will need hospitalization for further management. At the time of my examination, he had denied any headache, fever, chills, chest pain, hemoptysis, or any weight changes, but complained of shortness of breath. PAST MEDICAL HISTORY: Includes diabetes mellitus type 2, renal cell carcinoma, hypertension, bilateral DVT. PAST SURGICAL HISTORY: Left nephrectomy, sinus surgery. ALLERGIES: Penicillin and fentanyl. MEDICATIONS: Current medications listed in the MAR. SOCIAL HISTORY: He is a former smoker. Denies any history of alcohol or illicit drug use. FAMILY HISTORY: Positive for coronary disease in mother and father. REVIEW OF SYSTEMS: Twelve point review of systems listed as in HPI. Other systems negative. PHYSICAL EXAMINATION: GENERAL: Cooperative, friendly male. He is in some mild to moderate respiratory distress. VITAL SIGNS: Temperature 97.6 degrees, pulse 122, respirations 34, blood pressure 141/96. HEENT: Atraumatic, normocephalic. Extraocular movements intact. PERRLA. NECK: No masses. CHEST: Bibasilar rales. CARDIOVASCULAR: Regular rate and rhythm. ABDOMEN: Soft, obese. EXTREMITIES: +1 edema. NEUROLOGIC: He is awake, alert, oriented x3. GENITOURINARY: No bladder distention. SKIN: Warm. LABORATORIES AND STUDIES: Sodium 133, potassium 4.5, chloride 93, CO2 27, BUN is 16, creatinine is 1.1, glucose is 238. Troponin 0.167. Pro BNP is 9788. WBC 11.0, hemoglobin 9.3, hematocrit 31.2, platelets 407,000. ASSESSMENT: A 61-year-old male with a history of diabetes mellitus type 2, renal cell carcinoma, hypertension, and bilateral DVTs. Had [resented to the emergency department with a complaint of shortness of breath for several days. He was found to be in florid pulmonary edema. He was given IV diuresis and put on BiPAP. He had some improvement. This patient will need hospitalization for further management. 1. Acute congestive heart failure exacerbation, unspecified. 2. Pulmonary edema. 3. Troponinemia. 4. Diabetes mellitus type 2. 5. Renal cell carcinoma. 6. History of bilateral DVT. 7. Hypertension. PLAN: 1. We will admit patient to ICU. 2. We will continue patient on BiPAP and consider mechanical ventilation if he worsens. 3. Continue with diuresis with Lasix. 4. We will check echocardiogram and consult Cardiology. 5. Will trend his troponins. 6. We will monitor blood glucose and continue patient sliding scale insulin regimen. 7. We will consult his oncologist. 8. We will continue patient on Xarelto for his DVT. 9. We will monitor blood pressure closely and resume antihypertensive agent. 10. Patient's condition is guarded. Critical care time is 45 minutes. cc: Eddie Zavala MD
--- NOTE | 2017-03-09 05:37 | EKG Report ---
Test Performed on : 03/09/2017 02:41:33 AM Test Reason : tachycardia Blood Pressure : / mmHG Vent. Rate : 140 BPM Atrial Rate : 140 BPM P-R Int : 202 ms QRS Dur : 082 ms QT Int : 278 ms P-R-T Axes : 000 001 053 degrees QTc Int : 424 ms Sinus tachycardia. with frequent premature ventricular complexes. Otherwise normal ECG When compared with ECG of 08-MAR-2017 19:42, (Unconfirmed) premature ventricular complexes. are now present Confirmed by Helen EDMOND, Ramos Helton ([id number]) on 03/10/2017 9:56:31 AM
--- NOTE | 2017-03-09 05:43 | EKG Report ---
Test Performed on : 03/08/2017 7:42:29 PM Test Reason : + trop Blood Pressure : / mmHG Vent. Rate : 131 BPM Atrial Rate : 131 BPM P-R Int : 150 ms QRS Dur : 084 ms QT Int : 306 ms P-R-T Axes : -11 -03 059 degrees QTc Int : 451 ms Sinus tachycardia. Nonspecific ST abnormality Abnormal ECG When compared with ECG of 08-MAR-2017 14:33, (Unconfirmed) fusion complexes are no longer present premature ventricular complexes. are no longer present Unconfirmed Result
--- NOTE | 2017-03-09 05:43 | EKG Report ---
Test Performed on : 03/08/2017 2:33:32 PM Test Reason : + trop Blood Pressure : / mmHG Vent. Rate : 117 BPM Atrial Rate : 117 BPM P-R Int : 158 ms QRS Dur : 084 ms QT Int : 324 ms P-R-T Axes : 007 -13 054 degrees QTc Int : 451 ms Sinus tachycardia. with occasional premature ventricular complexes. and fusion complexes Low voltage QRS Borderline ECG When compared with ECG of 08-MAR-2017 14:33, (Unconfirmed) fusion complexes are now present Unconfirmed Result
[2017-03-09] MEDS: HUMULIN R SUBQ SCH ×4 (06:53→20:17)
[2017-03-09] MEDS ORDERED: XARELTO PO SCH (08:00)
[2017-03-09] MEDS: LEVAQUIN 500 MG/D5W 500 MG/100 ML IVPB IV SCH (08:02)
[2017-03-09 08:18] LABS: MANUAL DIFF NEEDED? NO
[2017-03-09 08:21] LABS: BASO% 0.2 % (0.0-0.8); HEMATOCRIT 30.9 % (42.0-52.0); HEMOGLOBIN 9.2 g/dL (14.0-18.0); IMM GRAN# 0.03 X1000 (0.0-0.04); IMM GRAN% 0.2 % (0.0-0.5); LYMPH# 1.03 X1000 (1.2-3.4); LYMPH% 7.6 % (20.5-51.1); MCH 28.3 PG (27-31); MCHC 29.8 g/dL (33-37); MCV 95.1 FL (81-99); MONO# 0.96 X1000 (0.11-0.59); MONO% 7.1 % (1.7-9.3); MPV 8.1 FL (7.4-10.4); NEUT% 84.9 % (42.2-75.2); PLT 349 X1000 (130-400); RBC 3.25 XMIL (4.7-6.1)
[2017-03-09 08:44] LABS: CALCIUM 8.7 mg/dL (8.8-10.2); POTASSIUM 4.2 mmol/L (3.5-5.1)
[2017-03-09] MEDS: PRILOSEC PO SCH (09:17)
[2017-03-09] MEDS: CYMBALTA PO SCH ×2 (10:15→20:18)
[2017-03-09] MEDS: NIASPAN PO SCH ×2 (10:16→20:17)
--- NOTE | 2017-03-09 10:40 | CONSULTATION ---
DATE OF CONSULTATION: 03/09/2017 HISTORY OF PRESENT ILLNESS: A 60-year-old gentleman with history of renal cell carcinoma, diabetes, hypertension, bilateral DVTs in the past on medications, who presented to the emergency room with increasing shortness of breath over the last several days. The patient had difficulty in breathing and was noted to have some altered mental status also. Patient denies any chest pain. He denies fevers, chills or hemoptysis. He was noted to have abnormal cardiac enzymes; cardiology was consulted and chest x-ray suggestive of heart failure. REVIEW OF SYSTEMS: A fourteen-point review of systems was done.GI system: There is no history of nausea, vomiting, or diarrhea. There is no history of hematemesis or melena. Central nervous system: No focal weakness. Per family this morning, the patient states that he is not feeling weak on any side which is focal. system: There is no dysuria or hematuria. PAST MEDICAL HISTORY: 1. Renal cell carcinoma status post left nephrectomy. 2. Hypertension. 3. Diabetes. 4. Bilateral DVT in the past. HOME MEDICATIONS: Per chart, his current medications include: 1. Xanax. 2. Cymbalta. 3. Lasix 40 mg IV b.i.d. 4. Insulin 35 units subcutaneous. 5. Levofloxacin. 6. Xarelto 10. 7. Prilosec. 8. Nitroglycerin paste. ALLERGIES: He is allergic to penicillin and fentanyl. OTHER SURGERIES: Nephrectomy, sinus surgery, tonsillectomy, cyst removal. PHYSICAL EXAMINATION: Vital Signs: Blood pressure was 107/63. Cardiovascular System: Normal jugular venous pressure. First and second heart sounds were heard. There is no S3 gallop. Respiratory System: Distant breath sounds. A few scattered wheezes were noted. Abdomen: Soft, obese, nontender. There was no guarding or rigidity. Bowel sounds were heard. Central nervous system: Alert and was moving all 4 extremities. Extremities: Examination of extremities revealed mild pedal edema. IMAGING: Chest x-ray: Cardiomegaly, probable pulmonary edema. LABORATORY EXAMINATION: Sodium 136, potassium 4.2, BUN 19, creatinine 1.4. CK-MB was normal. Abnormal troponin at 0.167, 0.162 and 0.192. ProBNP elevated at 978. WBC 13.57, platelets 349, hemoglobin 9.2, hematocrit 30.9. Urinary tract infection noted. ASSESSMENT AND PLAN: Mr. David Cameron is a 60-year-old gentleman with renal cell carcinoma status post nephrectomy in the past, diabetes mellitus, obesity, sleep apnea, venous stasis ulcers, comes with complaints of having increasing shortness of breath over the last 3 days and was noted to have low-grade temp and urine infection here in the hospital. Chest x-ray suggestive of pulmonary edema. He has been started on Lasix. His electrocardiogram revealed normal sinus rhythm, multiple premature ventricular beats were noted, he has abnormal troponin suggestive of non-Q-wave myocardial infarction. These were drawn when his baseline creatinine was 1.0; now creatinine has worsened to 1.4 secondary to diuretics. 1. Given this, we will get him more stable from a respiratory standpoint before planning further testing. We will get an echocardiogram to reassess for any wall motion abnormalities. 2. He is on Xarelto. We will discontinue the Xarelto and put him on Lovenox. 3. We will put him on aspirin and beta-blockers. 4. From a respiratory standpoint, he has had altered mental status. CT scan was unremarkable. He is on BiPAP. We will continue that. Diabetes. Continue with his home medications. Hypertension. Blood pressure is stable. I have not made any changes. Thank you for the consult. We will follow up. cc: MD Moreno Escamilla MD
[2017-03-09] MEDS: LANTUS SUBQ SCH (10:43)
[2017-03-09] MEDS: ASPIRIN PO SCH (11:45)
[2017-03-09] MEDS: LOPRESSOR PO SCH ×2 (11:45→20:17)
[2017-03-09] MEDS: LOVENOX SUBQ SCH ×2 (11:46→22:45)
--- NOTE | 2017-03-09 12:07 | PROGRESS NOTE ---
DATE: 03/09/2017 Mr. Cameron is steady in the ER however is going to be transferred to ICU as soon as a bed is available. He was brought to the emergency room last night with severe shortness of breath. Was found to be in pulmonary edema. ProBNP was elevated. Chest x-ray showed pulmonary congestion and cardiomegaly. He had a period of mental confusion for which a CT scan of the head was done. It was unremarkable. Mr. Cameron had some GI bleeding. He had recently had surgery for nephrectomy for renal carcinoma. He is followed by Dr. Meraz. He had a Cardiology consultation now. He is on IV Levaquin, IV Lasix and his regular medications which include duloxetine, hydrocodone, insulin. We will continue with the current management. He is on Xarelto which we will continue also. cc: Moreno Sepulveda MD
--- NOTE | 2017-03-09 15:08 | Diag Imaging Result Document ---
PROCEDURE NAME: LUNG SCAN / VQ - 03/09/2017 NUCLEAR MEDICINE VENTILATION PERFUSION LUNG SCAN: PROCEDURE: 40.1 mCi DTPA inhaled for the ventilation images. 5.5 mCi MAA given IV for the perfusion images. There are small matching ventilation perfusion defects. Recent plan film demonstrates cardiomegaly with pulmonary edema. No large perfusion defects or ventilation perfusion mismatches. IMPRESSION: Low probability for pulmonary embolus.
--- NOTE | 2017-03-09 15:51 | Diag Imaging Result Document ---
PROCEDURE NAME: CT THORAX W/O CONTRAST - 03/09/2017 CT CHEST WITHOUT CONTRAST: FINDINGS: There is a small to moderate sized right sided pleural effusion measuring 3.4 cm posteriorly and inferiorly. Trace left pleural fluid. The heart is enlarged. Mildly prominent mediastinal and hilar lymph nodes. There are multifocal bilateral patchy infiltrates. There is also basilar atelectasis. No bronchiectasis. There is central vascular prominence. IMPRESSION: 1. Cardiomegaly with pulmonary edema and small effusions. 2. Multifocal bilateral infiltrates.
--- NOTE | 2017-03-09 20:52 | ECHO REPORT ---
ORDER DATE: 03/09/2017 MEASUREMENTS: Left ventricular end-diastolic diameter 5.0, systolic diameter 2.9, septal thickness 1.3, left atrium 4.2, aortic root 3.3 SUMMARY: 1. Technically difficult study due to limited acoustic window quality. 2. Aortic valve is trileaflet and demonstrates sclerotic changes with mildly reduced leaflet mobility but visibly adequate opening. The peak gradient across aortic valve was 27 mmHg with a mean gradient of 15 mmHg suggesting mild aortic stenosis. There is trace aortic regurgitation. Mitral valve demonstrates sclerotic changes. There is mild mitral regurgitation. Tricuspid valve is without gross structural abnormality with mild tricuspid regurgitation. Pulmonic valve is not well demonstrated. Estimated systolic PA pressure by Doppler is approximately 50 mmHg. The aortic root is normal size. 3. Normal left ventricular chamber size with mild concentric left hypertrophy is suggested. Estimated left ejection fraction is greater than 65%. No obvious regional wall motion abnormalities can be appreciated. Left atrium is mildly enlarged. Right atrium, right ventricle are normal in size with grossly preserved right ventricular systolic performance. 4. No pericardial effusion. 5. Inferior vena cava not well demonstrated. CONCLUSIONS: 1. Technically difficult study. 2. Sclerotic aortic valve with mild aortic stenosis and trace aortic regurgitation. 3. Mitral valve sclerotic changes demonstrated with mild mitral regurgitation. 4. Mild tricuspid regurgitation with moderate pulmonary hypertension suggested by Doppler. 5. Mild concentric left hypertrophy with estimated left ejection fraction greater than 65%. 6. Mild left atrial enlargement. cc: MD Eddie Guzman MD Amit V. Vora, MD
[2017-03-10] MEDS: NITROGLYCERIN TOP SCH ×4 (02:52→20:23)
[2017-03-10 05:41] LABS: MANUAL DIFF NEEDED? NO
[2017-03-10 05:44] LABS: BASO% 0.3 % (0.0-0.8); EOS# 0.01 X1000 (0.0-0.7); EOS% 0.1 % (0.0-10.0); HEMATOCRIT 34.4 % (42.0-52.0); HEMOGLOBIN 10.2 g/dL (14.0-18.0); IMM GRAN# 0.02 X1000 (0.0-0.04); IMM GRAN% 0.2 % (0.0-0.5); LYMPH# 0.87 X1000 (1.2-3.4); LYMPH% 9.7 % (20.5-51.1); MCH 28.1 PG (27-31); MCHC 29.7 g/dL (33-37); MCV 94.8 FL (81-99); MONO# 0.66 X1000 (0.11-0.59); MONO% 7.3 % (1.7-9.3); NEUT% 82.4 % (42.2-75.2); PLT 249 X1000 (130-400); RBC 3.63 XMIL (4.7-6.1)
[2017-03-10 06:09] LABS: ALBUMIN 2.6 g/dL (3.5-5.0); CALCIUM 8.9 mg/dL (8.8-10.2); MAGNESIUM 2.2 mg/dL (1.5-2.7); POTASSIUM 5.4 mmol/L (3.5-5.1); TOTAL BILIRUBIN 0.81 mg/dL (0.20-1.00)
[2017-03-10] MEDS: HUMULIN R SUBQ SCH ×4 (06:18→20:21)
[2017-03-10] MEDS ORDERED: SAMSCA PO ONE (07:50)
--- NOTE | 2017-03-10 07:54 | Diag Imaging Result Document ---
PROCEDURE NAME: CHEST-PORTABLE - 03/10/2017 PORTABLE CHEST: COMPARISON: 03/08/2017. FINDINGS: There has been some increase in infiltrate/edema on the right, most prominent at the right base. There are no other interval changes identified. Central venous catheter remains in place. IMPRESSION: Interval increase in infiltrate/edema on the right.
[2017-03-10] MEDS ORDERED: INSULIN PEN NEEDLES ONE (08:21)
[2017-03-10] MEDS: NIASPAN PO SCH ×2 (08:24→20:23)
[2017-03-10] MEDS: LASIX IV SCH (08:24)
[2017-03-10] MEDS: NORCO-10 PO PRN (08:25)
[2017-03-10] MEDS: PRILOSEC PO SCH (08:25)
[2017-03-10] MEDS: CYMBALTA PO SCH ×2 (08:25→20:23)
[2017-03-10] MEDS: ASPIRIN PO SCH (08:25)
[2017-03-10] MEDS: LOPRESSOR PO SCH ×2 (08:26→20:23)
[2017-03-10] MEDS: LEVAQUIN 500 MG/D5W 500 MG/100 ML IVPB IV SCH (08:26)
[2017-03-10] MEDS: LANTUS SUBQ SCH (08:27)
[2017-03-10] MEDS: LOVENOX SUBQ SCH ×2 (10:36→21:30)
--- NOTE | 2017-03-10 12:11 | PROGRESS NOTE ---
DATE: 03/10/2017 This is covering for Dr. Sepulveda, ICU. SUBJECTIVE: Old chart has been reviewed. Consultation note with pier runner Dr. Zimmerman is reviewed. Patient was admitted by hospitalist on 03/08 for shortness of breath due to CHF with elevated proBNP. Echocardiography was done with the LV function 60%. He was started on IV fluids for last 24 hours. This morning he started having rapid atrial fibrillation with PVCs. He also has nocturnal cough and wheezing. PAST MEDICAL HISTORY: Was reviewed. MEDICATIONS: Were reviewed. REVIEW OF SYSTEMS: HEENT: No headache. No vision problem. Cardiopulmonary: No chest pain. Shortness of breath on exertion with nocturnal cough. GI: No nausea, vomiting , abdominal pain. Salazar catheter was seen. Extremities: No swelling of feet with discoloration of both feet. Neurologic: No weakness in the legs. No seizures. PHYSICAL EXAMINATION: Vital Signs: Afebrile. Tachycardic 104, irregular. Respirations 26, blood pressure is 11/72, on 50% Ventimask 98% saturations. Input and output minus 3 L. Weight is 300 pounds. General appearance: He is morbidly obese. Not in respiratory distress. HEENT Exam: On Ventimask. No anemia. No jaundice. Neck: Supple. No JVD not able to see. Chest: Bilateral air entry. Suboptimal exam due to obesity. Heart: Irregular heart sounds on the monitor with PVCs. Abdomen: Belly is soft, obese. Midline abdominal scar present. Extremities: Chronic venous stasis changes noted in both legs. Neurologic: No obvious focal deficits noted. INVESTIGATIONS: White cell count 9, hematocrit 34, platelets 249,000. PT 13, INR is 1.2. SMA 7: Sodium 130, potassium 5.4, BUN 27, creatinine 1.5. ProBNP was 9000. Positive troponin, negative CK. Blood cultures were negative. Urine cultures are showing gram-negative rods. Chest x-ray on 03/10/2017, interval decreasing of edema on the right side. V/Q scan, low probability of PE. Chest CT cardiomegaly with pulmonary edema. ASSESSMENT AND PLAN: 1. New onset of atrial fibrillation. Rate is well controlled. We will continue to monitor and currently is on beta blockers. If the rate is uncontrolled we will start on IV Cardizem drip. 2. Congestive heart failure with diastolic dysfunction. IV Lasix. Slightly worsening of azotemia. Chest x-ray is improving. We will slowly wean off oxygen. 3. History of DVT with chronic venous stasis changes. Currently on Lovenox 140 subcu q.12. 4. Type 2 diabetes on Lantus 35 units. Follow up on sliding scale. 5. UTI. Follow up on C and S. Currently on Levaquin. 6. Status post right nephrectomy due to renal cell carcinoma. 7. Reactive depression on Cymbalta. We will follow up on the labs in the morning, SMA 7, TSH, chest x-ray and blood gas. Discussed with the patient's at bedside. Care of plan and level of documentation 35 minutes. cc: MD Moreno Salazar MD MTDD
--- NOTE | 2017-03-10 13:40 | PROGRESS NOTE ---
DATE: 03/10/2017 CHIEF COMPLAINT: Cough, shortness of breath, irregular heartbeat. SUBJECTIVE: Mr. Cameron is coughing, is still short of breath. He is in sinus rhythm at this time. When he presented yesterday through the Emergency Room Department, he was in sinus tachycardia with PVCs, and the heart rate has decreased some. A CT scan of the chest was done last night, and that shows findings consistent with bronchopneumonia bilateral. A ventilation-perfusion scan was done to exclude thrombus, and it is low probability for pulmonary embolism. A 2D echocardiogram was done, which showed normal ejection fraction of left ventricle with mild degree of aortic stenosis. OBJECTIVE: Vital signs: His blood pressure right now is 118/72, pulse 104, respirations 26, temperature 97.1. General: He is obese, awake, alert, cooperative. He just finished eating lunch. Chest: Chest shows diminished breath sounds at the bases. Cardiac: Heart sounds are tachycardic, regular. No definite gallop or murmur noted. Abdomen: Obese, nontender. No hepatomegaly. Extremities: Extremities show marked discoloration of both legs with decreased pulses. He does have brawny edema bilaterally. He does have the classical legs of chronic stasis dermatitis with history of prior deep venous thrombosis. Neurological exam: Awake, alert, oriented. Moves four extremities. BLOOD WORK: White count 9000, hemoglobin 10.2. Platelet count is 249,000. Sodium 131, potassium 5.4, BUN 27, creatinine 1.5. IMPRESSION: 1. Patient has radiographic findings consistent with bilateral bronchopneumonia. Clinically he appears to have that condition. His C-reactive protein is markedly elevated at 298.49. Yesterday it was 236. Sedimentation rate yesterday was 116; today is 180. That is consistent with intense inflammatory process. 2. Diastolic heart failure. Patient has normal left ventricular systolic function. 3. 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 4. Morbid obesity. 5. History of recurrent deep venous thrombosis. 6. Previous gastrointestinal bleeding and recent upper and lower endoscopies performed by Dr. Lopez on him on 02/20/2017 and 03/09/2017. 7. Urinary tract infection. positive Urine culture. RECOMMENDATIONS: At this point in time, we will consult with Dr. Carmine Beckford, Infectious Disease, for advise regarding management of bronchopneumonia in a cancer patient. Regarding his heart condition, we will adjust his diuretics accordingly. No specific invasive or sophisticated management of his diastolic heart failure is required since it is clear that the diagnosis in this case is bronchopneumonia. In addition, the patient seems to have a positive urine culture which is growing gram-negative rods. This is probably complicating his case. Further intervention will depend on his clinical course. At this time, we have upgraded his Levaquin to 750 mg daily per suggestion of Dr. Cramine Beckford. cc: MD Moreno Braden MD [facility]ENT[facility]adha
[2017-03-10] MEDS: CARDIZEM 100 MG/NS 100 MG/100 ML IVPB IV SCH (17:36)
[2017-03-10] MEDS: TYLENOL PO PRN (20:23)
[2017-03-11] MEDS: TYLENOL PO PRN ×3 (03:34→20:27)
[2017-03-11] MEDS: NITROGLYCERIN TOP SCH ×4 (03:34→21:50)
[2017-03-11 04:44] LABS: ALLEN TEST YES; BLOOD TYPE ARTERIAL; DRAW SITE R RADIAL; PO2(98.6) 201 mmHg (60-100); SAMPLE BLOOD; pH(98.6) 7.33 (7.35-7.45)
[2017-03-11 04:47] LABS: MODALITY BI PAP; PCO2(98.6) 67 mmHg (35-45)
[2017-03-11 05:21] LABS: MANUAL DIFF NEEDED? NO
[2017-03-11 05:26] LABS: BASO% 0.2 % (0.0-0.8); EOS# 0.01 X1000 (0.0-0.7); EOS% 0.1 % (0.0-10.0); HEMATOCRIT 29.7 % (42.0-52.0); HEMOGLOBIN 8.8 g/dL (14.0-18.0); LYMPH# 0.96 X1000 (1.2-3.4); LYMPH% 11.8 % (20.5-51.1); MCH 28.3 PG (27-31); MCHC 29.6 g/dL (33-37); MCV 95.5 FL (81-99); MONO# 0.56 X1000 (0.11-0.59); MONO% 6.9 % (1.7-9.3); MPV 8.5 FL (7.4-10.4); PLT 268 X1000 (130-400); RBC 3.11 XMIL (4.7-6.1)
[2017-03-11 05:55] LABS: CALCIUM 9.4 mg/dL (8.8-10.2); POTASSIUM 4.3 mmol/L (3.5-5.1)
[2017-03-11] MEDS: HUMULIN R SUBQ SCH ×4 (06:02→20:27)
--- NOTE | 2017-03-11 07:25 | Diag Imaging Result Document ---
PROCEDURE NAME: CHEST-PORTABLE - 03/11/2017 PORTABLE CHEST: COMPARISON: Compared to 03/10/2017. FINDINGS: No change in the right subclavian line. The heart remains prominent. There is a small left pleural effusion. There are bilateral diffuse infiltrates. No significant change compared to the prior exam. IMPRESSION: Stable chest.
[2017-03-11] MEDS ORDERED: LEVAQUIN 750 MG/D5W 750 MG/150 ML IVPB IV SCH (08:00)
[2017-03-11] MEDS: LASIX IV SCH (08:34)
[2017-03-11] MEDS: NIASPAN PO SCH ×2 (08:35→21:50)
[2017-03-11] MEDS: LOPRESSOR PO SCH ×2 (08:35→21:51)
[2017-03-11] MEDS: PRILOSEC PO SCH (08:35)
[2017-03-11] MEDS: ASPIRIN PO SCH (08:35)
[2017-03-11] MEDS: LANTUS SUBQ SCH (08:36)
[2017-03-11] MEDS: CYMBALTA PO SCH ×2 (08:49→21:50)
[2017-03-11] MEDS: LOVENOX SUBQ SCH ×2 (09:58→21:50)
--- NOTE | 2017-03-11 11:55 | PROGRESS NOTE ---
DATE: 03/11/2017 CHIEF COMPLAINT: Shortness of breath, cough, irregular heartbeat. SUBJECTIVE: Mr. Cameron is breathing a little better. He is still coughing. He is not having any chest pain. His telemetry shows sinus rhythm. OBJECTIVE: Blood pressure is 109/86, temperature 96.4, pulse 104, respirations 26. He is awake, alert, oriented, obese, in no distress. HEENT: Unremarkable. Chest: Diminished breath sounds at bases bilaterally. Heart sounds are regular and rhythmic, tachycardic. Abdomen: Obese, nontender. No masses. No hepatomegaly. Extremities showed discoloration of both legs consistent with chronic venostasis dermatitis. Pulses are palpable in both feet. Neurologic: Awake, alert and oriented x3, a little hard of hearing. Moves all 4 extremities. DIAGNOSTIC DATA: White count is 8113, hemoglobin 8.8, hematocrit 29.7. Blood gases showed pH of 7.33, pCO2 of 67, pO2 of 201. This was done on BiPAP. Sodium is 138, potassium 4.3, BUN is 28, creatinine 1.4. His EKG has not been done today. IMPRESSION: 1. The patient has radiographic and clinical presentation consistent with pneumonia. He probably has bronchopneumonic condition. 2. Diastolic heart failure which is probably acute on chronic. 3. Morbid obesity. 4. 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 5. History of gastrointestinal bleeding. 6. Urinary tract infection with Escherichia coli growing in the urine. The E. Coli is resistant to Levoquin. RECOMMENDATIONS: At this point in time, the patient seems to be somewhat better. He is on IV Levoquin at a dose of 750 mg daily per suggestion of Dr. Carmine Beckford. Given the fact that his urine culture indicates the presence of E. coli that is resistant to Levoquin, we may have to switch him over to an alternative antibiotic. Probably the best thing would be to switch him over to cefazolin or a cephalosporin type of drug. We will discuss this with Dr. Beckford and will let him make a decision regarding this matter. Cardiac soto, I believe he is stable. We may give him doses of diuretics as needed to keep him euvolemic. We will follow him along. Thank you for the opportunity to participate in his evaluation. cc: MD Moreno Braden, MD [facility]
--- NOTE | 2017-03-11 13:23 | PROGRESS NOTE ---
DATE: 03/11/2017 SUBJECTIVE: Interval history, for the last 24 hours the patient is in atrial fibrillation with rapid ventricular response and blood pressure is a little bit high. He was started on IV Cardizem drip. Now he is going in and out with normal sinus. He did use the BiPAP machine last night. Patient was seen by programming coordinator, Dr. King, who was started him on Levaquin. REVIEW OF SYSTEMS: No complaints. Still persistent cough. I's and O's continue to be negative, - 1.7 L. OBJECTIVE: Vital signs: He is afebrile. Hemodynamics are stable. Weight 300 pounds. He is not in respiratory distress on Ventimask 50%. Chest: Suboptimal exam. He had a port seen on the right side. Cardiovascular: Heart sounds are very distant. Abdomen: Belly is soft, obese, nontender. Good bowel sounds. Extremities: Chronic venous stasis changes in both legs. : Salazar catheter was seen. Neurologic: No deficits noted. INVESTIGATIONS: CBC: White cell count 8.1, hematocrit 29, platelet count 268,000. ABG, pH is 7.33, pCO2 67, PO2 200 on BiPAP, FiO2 70%. SMA 7: Sodium 138, potassium 4.3, chloride 95, BUN 28, creatinine 1.4, glucose 135, calcium 9.4. Urine cultures are positive for E. coli, ESBL negative, resistant to Levaquin. ASSESSMENT AND PLAN: 1. Acute respiratory failure due to underlying sleep apnea, Pickwickian syndrome with diastolic heart failure, intermittent atrial fibrillation. Currently on Lasix and Lovenox, IV Cardizem and metoprolol. 2. Urinary tract infection with Escherichia coli, extended spectrum beta-lactamase negative. Discontinue Levaquin. Change to Macrobid since the patient is allergic to penicillin with anaphylactic shock. 3. Type 2 diabetes. On Lantus 35 units and sliding scale. Blood sugars are doing very well. 4. History of renal cell carcinoma, right nephrectomy, stable. 5. Chronic venous stasis changes, stable. PLAN OF CARE: Today wean off oxygen and Ventimask to 4 L. Keep on IV Cardizem drip and slowly changed to p.o. Cardizem. Repeat the SMA [address] Sepulveda is going to follow up in the morning. LEVEL OF DOCUMENTATION: 25 minutes. cc: MD Moreno Salazar MD
[2017-03-11] MEDS: ROCEPHIN 2 GM/NS 2 GM/50 ML IVPB IV SCH (15:41)
[2017-03-11] MEDS: ZITHROMAX PO SCH (16:27)
--- NOTE | 2017-03-11 17:11 | CONSULTATION ---
DATE OF CONSULTATION: 03/11/2017 CONCLUSION: The patient has a E. coli urinary tract infection. Whether this is asymptomatic or symptomatic is uncertain to me. In addition, to me he appears to have a bibasilar pneumonia. RECOMMENDATIONS: I have switched the patient from Macrodantin to a combination of Rocephin given IV and azithromycin p.o. Also I have ordered a sputum culture and a urinary pneumococcal antigen and a urinary Legionella antigen. DISCUSSION: The patient was somewhat of a vague historian. Most of the history was taken from the patient's . The patient was admitted to the hospital. He was weak, had an altered mental status. He was incontinent of urine. He also was dyspneic. He was having chest pain but is stopped now and initially it was not just pleuritic either. LABORATORY DATA: Thus far show a CBC with a white count of 8130, hemoglobin 8.8 and platelet count 268,000. Blood gases show a pH of 7.33, a PO2 of 201 and a pCO2 of 67. The creatinine is 1.4. The GFR is 52. Liver function studies are normal except for an alkaline phosphatase of 130 and an AST of 49. Urinalysis showed white cells and red cells but no bacteria. Chest x-ray shows bilateral infiltrates. Lung scan shows low probability of pulmonary embolus. PAST MEDICAL HISTORY/REVIEW OF SYSTEMS: Was unable to be obtained from the patient at this time. PREVIOUS HOSPITALIZATIONS AND OPERATIONS: He has had a left nephrectomy, also removal of an adrenal gland due to renal cancer. He has had sinus surgery. He has had placement of a right- sided Port-A-Cath. PAST MEDICAL HISTORY: Positive for diabetes mellitus, renal cell carcinoma, hypertension, deep venous thrombosis bilaterally and obesity. INFECTIOUS DISEASE HISTORY: Positive for pneumonia and UTI. FAMILY HISTORY: Positive for myocardial infarction, diabetes mellitus and stroke. SOCIAL HISTORY: The patient is . Does not have any pets at home. He previously smoked but not recently. He does not drink alcoholic beverages or abuse drugs. ALLERGIES: The patient has an allergy to penicillin although he does not know the manifestations of the allergy. He told me that his mother told him that he was allergic to penicillin. The patient has had Keflex in the past and he has tolerated it well. PHYSICAL EXAMINATION: Vital Signs: Temperature is 101.7 degrees, pulse 104, respirations 26, blood pressure 132/74. Generally: This is an obese, chronically ill-appearing middle-aged male. He is in no acute distress. Head, eyes, ears, nose, and throat: He can hear my spoken words and see near objects. There were no white patches in his mouth. Neck: No meningismus. Thorax: No increased AP diameter of the chest. Lungs: There were bilateral basilar rales. Cardiovascular: Patient's heart rate was irregular. He has edema of the legs with brown discoloration of the distal legs. I could not feel peripheral pulses well possibly related to the fact that the patient had leg edema. Chest: Patient has a right-sided Port-A-Cath in place. The Port-A-Cath site is not erythematous or swollen. Abdomen: Soft and nontender. Neurologic: Patient is awake. He moved his extremities to request. There was no tremor. His sensation was intact to touch. I was unable to formally test the patient's memory. Thank you for the consult. cc: MD Moreno Way MD
[2017-03-11] MEDS ORDERED: MACROBID PO SCH (21:00)
[2017-03-12] MEDS: NITROGLYCERIN TOP SCH ×4 (03:12→21:48)
[2017-03-12] MEDS: HUMULIN R SUBQ SCH ×4 (06:08→21:48)
[2017-03-12 08:12] LABS: CALCIUM 9.2 mg/dL (8.8-10.2); POTASSIUM 4.3 mmol/L (3.5-5.1)
[2017-03-12] MEDS: LOPRESSOR PO SCH ×2 (08:27→21:47)
[2017-03-12] MEDS: LASIX IV SCH (08:27)
[2017-03-12] MEDS: CYMBALTA PO SCH ×2 (08:28→21:47)
[2017-03-12] MEDS: ZITHROMAX PO SCH (08:28)
[2017-03-12] MEDS: NIASPAN PO SCH ×2 (08:29→21:48)
[2017-03-12] MEDS: LANTUS SUBQ SCH (08:29)
[2017-03-12] MEDS: ASPIRIN PO SCH (08:29)
[2017-03-12] MEDS: PRILOSEC PO SCH (08:29)
--- NOTE | 2017-03-12 08:31 | Diag Imaging Result Document ---
PROCEDURE NAME: CHEST-PORTABLE - 03/12/2017 PORTABLE CHEST: Compared with 03/11/2017. FINDINGS: Central venous catheter remains in place. There is stable mild cardiomegaly. There is stable findings of pulmonary edema. There is no pneumothorax seen. IMPRESSION: Stable pulmonary edema.
[2017-03-12] MEDS: LOVENOX SUBQ SCH ×2 (10:06→21:48)
--- NOTE | 2017-03-12 12:41 | PROGRESS NOTE ---
DATE: 03/12/2017 Mr. Cameron is more alert. Less short of breath. He has no leg edema. Feet are cold. He has some bilateral pulmonary congestion. His electrolytes are stable. BUN 28, creatinine 1.4. Urine culture grew E. coli. His chest x-ray shows evidence of pneumonia as well as possible pulmonary edema bilaterally. He is being seen by Dr. Beckford as well as the hospital intern. He is on ceftriaxone 2 g IV q.12 hours. He was getting azithromycin IV. cc: Moreno Sepulveda MD
--- NOTE | 2017-03-12 13:10 | EKG Report ---
Test Performed on : 03/10/2017 09:13:47 AM Test Reason : CCU 16. Not ordered in [place] Blood Pressure : / mmHG Vent. Rate : 134 BPM Atrial Rate : 107 BPM P-R Int : 000 ms QRS Dur : 088 ms QT Int : 324 ms P-R-T Axes : 000 -03 046 degrees QTc Int : 483 ms Multifocal atrial tachycardia with premature ventricular or aberrantly conducted complexes. Abnormal ECG When compared with ECG of 09-MAR-2017 02:41, (Unconfirmed) Multifocal atrial tachycardia has replaced Sinus rhythm. Confirmed by Helen EDMOND, Ramos Helton ([id number]) on 03/13/2017 12:44:05 PM
[2017-03-12] MEDS: ROCEPHIN 2 GM/NS 2 GM/50 ML IVPB IV SCH (16:01)
--- NOTE | 2017-03-12 18:55 | PROGRESS NOTE ---
DATE: 03/12/2017 PRESENT ILLNESS: The patient has an Escherichia coli urinary tract infection. He also appears to have a bibasilar pneumonia with effusion. MEDICATIONS: The patient is receiving Rocephin and azithromycin. PHYSICAL EXAMINATION: Vital Signs: Temperature is 98.7 degrees, pulse 114, respirations 25, blood pressure 139/68. General: This is an ill-appearing elderly male who is in no acute distress. Lungs: Clear to auscultation. Cardiovascular: Irregular heart rate. Abdomen: Soft and nontender. Neurologic: Patient is awake. He can move his extremities. LAB AND X-RAY: CBC today showed a white count of 8130, hemoglobin 8.8, platelet count 268,000. Blood gases show a pH of 7.33, a pO2 of 201, pCO2 of 67, creatinine is 1.4. The GFR is 52. Chest x-ray shows pulmonary edema. I believe there is bilateral pneumonia present also. ASSESSMENT AND PLAN: The plan is to continue with Rocephin and azithromycin for the patient's urinary tract infection and pneumonia. COMORBIDITIES: Include diabetes mellitus, morbid obesity, and a history of renal cell carcinoma. cc: MD Moreno Way MD
[2017-03-13] MEDS: NITROGLYCERIN TOP SCH ×4 (03:17→20:47)
[2017-03-13 05:49] LABS: BASO% 0.3 % (0.0-0.8); EOS# 0.04 X1000 (0.0-0.7); EOS% 0.7 % (0.0-10.0); HEMATOCRIT 29.1 % (42.0-52.0); HEMOGLOBIN 8.5 g/dL (14.0-18.0); LYMPH# 0.78 X1000 (1.2-3.4); LYMPH% 13.5 % (20.5-51.1); MANUAL DIFF NEEDED? NO; MCHC 29.2 g/dL (33-37); MCV 95.7 FL (81-99); MONO# 0.68 X1000 (0.11-0.59); MONO% 11.8 % (1.7-9.3); MPV 8.7 FL (7.4-10.4); NEUT% 73.7 % (42.2-75.2); PLT 221 X1000 (130-400); RBC 3.04 XMIL (4.7-6.1)
[2017-03-13 05:53] LABS: AGAP 11; BUN 23 mg/dL (8-22); CHLORIDE 95 mmol/L (98-107); COSMO 287; POTASSIUM 3.9 mmol/L (3.5-5.1); SODIUM 140 mmol/L (136-145); TCO2 34 mmol/L (25-35)
[2017-03-13] MEDS: HUMULIN R SUBQ SCH ×4 (06:10→20:48)
--- NOTE | 2017-03-13 07:23 | Diag Imaging Result Document ---
PROCEDURE NAME: CHEST-PORTABLE - 03/13/2017 PORTABLE CHEST: COMPARISON: Compared to 03/12/2017. FINDINGS: No change in the right subclavian line. There are dense bilateral infiltrates. The heart remains prominent. I believe there is a small left appearance. The overall appearance is similar to that of the prior exam. IMPRESSION: No interval improvement.
[2017-03-13] MEDS: LOVENOX SUBQ SCH ×2 (09:01→20:47)
[2017-03-13] MEDS: LOPRESSOR PO SCH ×2 (09:02→20:47)
[2017-03-13] MEDS: ZITHROMAX PO SCH (09:02)
[2017-03-13] MEDS: PRILOSEC PO SCH (09:02)
[2017-03-13] MEDS: LASIX IV SCH (09:02)
[2017-03-13] MEDS: NIASPAN PO SCH ×2 (09:02→20:47)
[2017-03-13] MEDS: ASPIRIN PO SCH (09:03)
[2017-03-13] MEDS: LANTUS SUBQ SCH (09:04)
[2017-03-13] MEDS: CYMBALTA PO SCH ×2 (09:04→20:47)
--- NOTE | 2017-03-13 09:26 | PROGRESS NOTE ---
DATE: 03/13/2017 Mr. Cameron is alert and oriented. He gets BiPAP intermittently. His lungs still reveal bilateral congestion. CBC shows hemoglobin down to 8.5, hematocrit 29.1, white count is 5.77. Electrolytes are stable. He has mild dehydration with some renal failure. Dehydration probably is secondary from Lasix. Chest x-ray is unchanged. He is getting 2 g of Rocephin daily and azithromycin. He is seen by Dr. Beckford as well as the kinder teacher. We will continue with the current management. cc: Moreno Sepulveda MD
[2017-03-13] MEDS ORDERED: LASIX IV ONE (12:58)
[2017-03-13] MEDS: ROCEPHIN 2 GM/NS 2 GM/50 ML IVPB IV SCH (16:18)
--- NOTE | 2017-03-13 19:11 | PROGRESS NOTE ---
DATE: 03/13/2017 PRESENT ILLNESS: The patient has an E. coli urinary tract infection and a bilateral pneumonia with effusions. MEDICATIONS: This is the 2nd day of treatment with ceftriaxone 2 g IV every 24 hours and Zithromax 500 mg p.o. daily. PHYSICAL EXAMINATION: Vital Signs: The patient's temperature is 97.5, pulse 94, respirations 28, blood pressure 151/87. General: This is an obese, chronically ill-appearing, middle-aged male. He is in no acute distress. Lungs: Clear to auscultation. Cardiovascular: Heart rate is irregular. Abdomen: Soft and nontender. Neurologic: Patient is alert. He can move his extremities. There is no tremor. LAB AND X-RAY: Chest x-ray shows bilateral infiltrates. CBC shows a white count of 5770, hemoglobin 8.5, and platelet count 221,000. Creatinine is 1.2. GFR is greater than 60. ASSESSMENT AND PLAN: I plan to continue Rocephin and azithromycin for the patient's urinary tract infection and pneumonia. COMORBIDITIES: Include diabetes mellitus, morbid obesity, and a history of renal cell carcinoma. cc: MD Moreno Way MD
[2017-03-14] MEDS: NITROGLYCERIN TOP SCH ×4 (03:03→20:35)
[2017-03-14] MEDS: HUMULIN R SUBQ SCH ×4 (06:02→20:34)
--- NOTE | 2017-03-14 07:42 | Diag Imaging Result Document ---
PROCEDURE NAME: CHEST-1 VIEW - 03/14/2017 SINGLE FRONTAL RADIOGRAPH OF THE CHEST: COMPARISON: 03/13/2017. FINDINGS: Right chest port is in stable position. Diffuse bilateral infiltrates are unchanged. There are no new consolidations. Cardiac silhouette is stable. IMPRESSION: Stable chest.
[2017-03-14] MEDS: NIASPAN PO SCH ×2 (08:05→20:43)
[2017-03-14] MEDS: LASIX IV SCH (08:05)
[2017-03-14] MEDS: LANTUS SUBQ SCH (08:05)
[2017-03-14] MEDS: PRILOSEC PO SCH (08:05)
[2017-03-14] MEDS: CYMBALTA PO SCH ×2 (08:05→20:35)
[2017-03-14] MEDS: LOVENOX SUBQ SCH (08:06)
[2017-03-14] MEDS: LOPRESSOR PO SCH ×2 (08:06→20:35)
[2017-03-14] MEDS: ZITHROMAX PO SCH (08:06)
[2017-03-14] MEDS: ASPIRIN PO SCH (08:10)
--- NOTE | 2017-03-14 11:45 | PROGRESS NOTE ---
DATE: 03/14/2017 SUBJECTIVE: The patient's vital signs are stable. He is afebrile. Pulse 100 per minute, slightly irregular. Respiratory rate 25 per minute, blood pressure 167/91. His chest x-ray is unchanged. Will repeat his electrolytes and CBC again in the morning. -9 cc: Moreno Sepulveda MD
[2017-03-14] MEDS ORDERED: LASIX IV ONE (14:41)
[2017-03-14] MEDS: ROCEPHIN 2 GM/NS 2 GM/50 ML IVPB IV SCH (15:04)
[2017-03-14] MEDS: CARDIZEM 100 MG/NS 100 MG/100 ML IVPB IV SCH (17:50)
[2017-03-14] MEDS: NORCO-10 PO PRN (20:35)
[2017-03-14] MEDS: XANAX PO PRN (20:35)
--- NOTE | 2017-03-14 20:41 | PROGRESS NOTE ---
DATE: 03/14/2017 PRESENT ILLNESS: Patient has bilateral pneumonia with effusions and an Escherichia coli urinary tract infection. MEDICATIONS: This is day 3 of treatment with Rocephin and azithromycin. PHYSICAL EXAMINATION: Vital Signs: Temperature is 98.2 degrees, pulse 100, respirations 21, blood pressure 153/93. General: The patient is awake. He is in no acute distress. He says he is feeling better. Lungs: Clear to auscultation. Chest: Patient has a right-sided Port-A-Cath present. The site is not swollen or erythematous. Cardiovascular: Heart rate is irregular. Abdomen: Soft and nontender. Integument: No rash noted. LAB AND X-RAY: CBC today shows a white count of 5770, hemoglobin 8.5, platelet count 221,000. Creatinine is 1.2. GFR is greater than 60. The Legionella and pneumococcal urinary antigens are negative. Sputum grew normal marla. Chest x-ray shows bilateral infiltrates. ASSESSMENT AND PLAN: I plan to continue both Rocephin and azithromycin for the patient's pneumonia and his urinary tract infection. COMORBIDITIES: Diabetes mellitus, morbid obesity, and a history of renal cell carcinoma. cc: MD Moreno Way MD
[2017-03-15] MEDS: CARDIZEM 100 MG/NS 100 MG/100 ML IVPB IV SCH (02:00)
[2017-03-15 04:23] LABS: ALLEN TEST YES; BE 14.7 mmoll (-3.0-3.0); BLOOD TYPE ARTERIAL; DRAW SITE R RADIAL; METHB 1.5 % (0.0-1.5); O2(CT) 12.7 mL/dL (15.0-23.0); PO2(98.6) 141 mmHg (60-100); SAMPLE BLOOD; SAO2 99.6 % (95.0-100.0); THB 9.2 g/dL (11.5-17.4); pH(98.6) 7.44 (7.35-7.45)
[2017-03-15 04:24] LABS: MODALITY BI PAP; PCO2(98.6) 60 mmHg (35-45)
[2017-03-15] MEDS: NITROGLYCERIN TOP SCH ×4 (05:02→20:50)
[2017-03-15 05:27] LABS: BASO% 0.6 % (0.0-0.8); EOS# 0.21 X1000 (0.0-0.7); EOS% 4.2 % (0.0-10.0); HEMATOCRIT 28.5 % (42.0-52.0); HEMOGLOBIN 8.6 g/dL (14.0-18.0); IMM GRAN# 0.04 X1000 (0.0-0.04); IMM GRAN% 0.8 % (0.0-0.5); LYMPH# 1.38 X1000 (1.2-3.4); LYMPH% 27.9 % (20.5-51.1); MANUAL DIFF NEEDED? NO; MCH 27.8 PG (27-31); MCHC 30.2 g/dL (33-37); MCV 92.2 FL (81-99); MONO# 0.72 X1000 (0.11-0.59); MONO% 14.5 % (1.7-9.3); MPV 8.8 FL (7.4-10.4); PLT 263 X1000 (130-400); RBC 3.09 XMIL (4.7-6.1)
[2017-03-15 05:42] LABS: CALCIUM 8.9 mg/dL (8.8-10.2); POTASSIUM 3.4 mmol/L (3.5-5.1)
[2017-03-15] MEDS: HUMULIN R SUBQ SCH ×4 (06:40→20:50)
[2017-03-15] MEDS: PRILOSEC PO SCH (08:05)
[2017-03-15] MEDS: LOVENOX SUBQ SCH (08:05)
[2017-03-15] MEDS: ZITHROMAX PO SCH (08:05)
[2017-03-15] MEDS: LANTUS SUBQ SCH (08:05)
[2017-03-15] MEDS: LOPRESSOR PO SCH ×2 (08:05→20:51)
[2017-03-15] MEDS: CYMBALTA PO SCH ×2 (08:06→20:51)
[2017-03-15] MEDS: ASPIRIN PO SCH (08:06)
[2017-03-15] MEDS: NIASPAN PO SCH ×2 (08:06→21:18)
[2017-03-15] MEDS: LASIX IV SCH (08:06)
[2017-03-15] MEDS: KLOR-CON PO SCH ×2 (09:10→20:51)
--- NOTE | 2017-03-15 14:03 | PROGRESS NOTE ---
DATE: 03/15/2017 SUBJECTIVE: The patient is doing about the same. His heart rate went high yesterday, and we had to start the Cardizem drip, which we are tapering down. His O2 saturation is 94% at the present time. He had some CO2 retention. He gets BiPAP intermittently. He was given 80 mg of IV Lasix yesterday. We will repeat the chest x-ray today. Potassium has come down to 3.4, which we will replace with oral potassium. Overall condition is unchanged. He is on Rocephin, high dose, as well as azithromycin. -3 cc: Moreno Sepulveda MD
[2017-03-15] MEDS: ROCEPHIN 2 GM/NS 2 GM/50 ML IVPB IV SCH (16:35)
--- NOTE | 2017-03-15 18:20 | PROGRESS NOTE ---
DATE: 03/15/2017 PRESENT ILLNESS: The patient has had bilateral pneumonia and an Escherichia coli urinary tract infection. MEDICATIONS: This is the 4th day of treatment with Rocephin and azithromycin. PHYSICAL EXAMINATION: Vital Signs: Temperature is 97.5 degrees, pulse 78, respirations 21, blood pressure 152/73. General: This is an obese, middle-aged male. He is in no acute distress. Lungs: Clear to auscultation. Cardiovascular: Heart rate is irregular. Abdomen: Soft and nontender. Extremities: Legs are edematous, but not erythematous. LABORATORY AND X-RAY: Chest x-ray shows bilateral infiltrates. The CBC for today shows a white count of 4950, hemoglobin 8.6 and platelet count 263,000. Blood gases show a pH of 7.44, PO2 of 141, a pCO2 of 60, creatinine is 1.3. GFR is 57. Urine as mentioned above grew E. coli. ASSESSMENT AND PLAN: 1. I plan to continue the patient's antibiotics for his pneumonia and urinary tract infection. 2. Comorbidities: Diabetes mellitus, morbid obesity, and a history of a renal cell carcinoma. cc: MD Moreno Way MD
[2017-03-15] MEDS ORDERED: LOPRESSOR PO SCH (20:00)
[2017-03-15] MEDS: NORCO-10 PO PRN (20:51)
[2017-03-15] MEDS: XANAX PO PRN (20:51)
[2017-03-16] MEDS: NITROGLYCERIN TOP SCH ×4 (02:13→20:05)
[2017-03-16] MEDS: LOPRESSOR PO SCH ×4 (02:13→19:09)
[2017-03-16 05:27] LABS: AGAP 8; BUN 23 mg/dL (8-22); CALCIUM 8.7 mg/dL (8.8-10.2); CHLORIDE 92 mmol/L (98-107); COSMO 279; POTASSIUM 3.8 mmol/L (3.5-5.1); SODIUM 135 mmol/L (136-145); TCO2 35 mmol/L (25-35)
[2017-03-16] MEDS: HUMULIN R SUBQ SCH ×4 (06:07→20:08)
--- NOTE | 2017-03-16 06:15 | Diag Imaging Result Document ---
PROCEDURE NAME: CHEST-PORTABLE - 03/16/2017 PORTABLE CHEST: COMPARISON: 03/14/2017. FINDINGS: No change in the right subclavian catheter. No pneumothorax. There are bilateral infiltrates. These are less dense and less pronounced than on the prior exam. The heart remains enlarged. I believe there is a small left effusion. IMPRESSION: Interval improvement.
[2017-03-16] MEDS: NIASPAN PO SCH ×2 (09:11→20:17)
[2017-03-16] MEDS: KLOR-CON PO SCH ×2 (09:11→20:04)
[2017-03-16] MEDS: ZITHROMAX PO SCH (09:11)
[2017-03-16] MEDS: ASPIRIN PO SCH (09:11)
[2017-03-16] MEDS: LANTUS SUBQ SCH (09:11)
[2017-03-16] MEDS: PRILOSEC PO SCH (09:11)
[2017-03-16] MEDS: LASIX IV SCH (09:12)
[2017-03-16] MEDS: CYMBALTA PO SCH ×2 (09:12→20:04)
[2017-03-16] MEDS: LOVENOX SUBQ SCH (09:12)
--- NOTE | 2017-03-16 10:33 | PROGRESS NOTE ---
DATE: 03/16/2017 Mr. Cameron is doing better. He is off Cardizem drip at the present time. Heart rate is around 90, and O2 saturation is 94%. His lungs sound somewhat better. Chest x-ray shows some improvement. He has bilateral pneumonia. He is getting p.o. azithromycin and IV Rocephin, as well as IV Lasix. Overall condition is unchanged. We will continue with the current management on him and watch him in the ICU. -4 cc: Moreno Sepulveda MD
[2017-03-16] MEDS: ROCEPHIN 2 GM/NS 2 GM/50 ML IVPB IV SCH (16:31)
--- NOTE | 2017-03-16 20:59 | PROGRESS NOTE ---
DATE: 03/16/2017 PRESENT ILLNESS: The patient has bilateral pneumonia and an E. coli urinary tract infection. MEDICATIONS: This is the 5th day of treatment with azithromycin and Rocephin. PHYSICAL EXAMINATION: Vital Signs: Temperature is 97.6 degrees, pulse 86, respirations 28, blood pressure 128/76. General: Patient is feeling better. He is not coughing, he has been able to eat. He is not having any chest pain. Lungs: Clear to auscultation. Cardiovascular: Regular heart rate. Abdomen: Soft and nontender. Chest: Patient has a right-sided Port-A-Cath in place. The site is not erythematous or swollen. Extremities: Patient has bilateral leg edema. LAB AND X-RAY: Chest x-ray shows improvement in the patient's bilateral infiltrates. The patient's blood gases show a pH of 7.44, PO2 of 141, a pCO2 of 60. Patient's CBC shows a white count of 4950, hemoglobin 8.6 and platelet count 263,000. ASSESSMENT AND PLAN: The patient's pneumonia is getting better and his urinary tract infection is being treated also. I plan to continue his 2 antibiotics. COMORBIDITIES: Include diabetes mellitus, morbid obesity, and history of a renal cell carcinoma. cc: MD Moreno Way MD
[2017-03-17] MEDS: NITROGLYCERIN TOP SCH ×4 (02:56→20:11)
[2017-03-17] MEDS: LOPRESSOR PO SCH ×4 (02:56→20:11)
[2017-03-17] MEDS: HUMULIN R SUBQ SCH ×4 (06:02→20:11)
[2017-03-17] MEDS: LOVENOX SUBQ SCH (07:49)
[2017-03-17] MEDS: ZITHROMAX PO SCH (08:07)
[2017-03-17] MEDS: LASIX IV SCH (08:07)
[2017-03-17] MEDS: CYMBALTA PO SCH ×2 (08:08→20:11)
[2017-03-17] MEDS: PRILOSEC PO SCH (08:09)
[2017-03-17] MEDS: NIASPAN PO SCH ×2 (08:09→20:11)
[2017-03-17] MEDS: ASPIRIN PO SCH (08:09)
[2017-03-17] MEDS: KLOR-CON PO SCH ×2 (08:13→20:10)
[2017-03-17] MEDS: LANTUS SUBQ SCH (08:14)
--- NOTE | 2017-03-17 12:47 | PROGRESS NOTE ---
DATE: 03/17/2017 SUBJECTIVE: A 61-year-old white gentleman admitted with shortness of breath of several days which was getting worse. The patient also had some sinus drainage. The patient evaluated in the ER. Initial impression was pulmonary edema. The patient was started on BiPAP. The patient also had atrial fibrillation with rapid ventricular response. Admission history and physical, cardiology consultation and ID consultation noted. Patient is getting treatment for pneumonia. The patient is off the Cardizem drip. The patient does have mild cough. Chest congestion is improving. Shortness of breath is improving. He denied any typical chest pain. No nausea or vomiting. Admission history and physical noted. PAST MEDICAL HISTORY: Significant for diabetes, hypertension, atrial fibrillation, renal cell carcinoma status post nephrectomy, bilateral DVT, morbid obesity. Patient had left nephrectomy, sinus surgery, sleep apnea. OBJECTIVE: Vital Signs: Vital signs noted. Neck: Supple. No JVD. Lungs: Bibasilar crepitations. Heart: S1 and S2 heard. Abdomen: Soft, globular. Bowel sounds present. Extremities: No cyanosis, clubbing. Patient does have evidence of chronic stasis dermatitis. 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 LAB DATA: The patient's lab data done on March 15 reviewed. Blood gas done on March 15 also noted. CONSIDERATION: 1. Pneumonia. The patient is on Rocephin and Zithromax. Will continue. 2. Atrial fibrillation. 3. Renal cell carcinoma, status post left nephrectomy. Doing well. 4. Anemia, most likely of chronic disease. 5. Diabetes mellitus. 6. History of deep vein thrombosis. The patient is on Lovenox. PLAN: Patient labs and medication noted. We will continue current treatment and close observation. I am going to check appropriate labs tomorrow. Overall plan discussed with the patient, and he is in agreement. cc: MD Moreno Henning MD
[2017-03-17] MEDS: ROCEPHIN 2 GM/NS 2 GM/50 ML IVPB IV SCH (16:14)
[2017-03-18] MEDS: LOPRESSOR PO SCH ×4 (03:11→20:11)
[2017-03-18] MEDS: NITROGLYCERIN TOP SCH ×4 (03:11→20:11)
[2017-03-18] MEDS: HUMULIN R SUBQ SCH ×4 (06:43→20:12)
[2017-03-18 07:39] LABS: BASO% 0.3 % (0.0-0.8); EOS% 3.3 % (0.0-10.0); HEMATOCRIT 28.9 % (42.0-52.0); HEMOGLOBIN 8.2 g/dL (14.0-18.0); IMM GRAN# 0.22 X1000 (0.0-0.04); IMM GRAN% 3.6 % (0.0-0.5); MANUAL DIFF NEEDED? YES; MCH 26.7 PG (27-31); MCHC 28.4 g/dL (33-37); MCV 94.1 FL (81-99); MONO# 0.56 X1000 (0.11-0.59); MONO% 9.2 % (1.7-9.3); NEUT% 65.6 % (42.2-75.2); PLT 385 X1000 (130-400); RBC 3.07 XMIL (4.7-6.1)
[2017-03-18 07:48] LABS: AGAP 7; ALBUMIN 2.9 g/dL (3.5-5.0); ALKALINE PHOSPHATASE 115 U/L (32-122); BUN 21 mg/dL (8-22); CALCIUM 8.8 mg/dL (8.8-10.2); CHLORIDE 94 mmol/L (98-107); COSMO 286; GOT 13 U/L (10-34); GPT 11 U/L (10-44); MAGNESIUM 2.2 mg/dL (1.5-2.7); POTASSIUM 4.3 mmol/L (3.5-5.1); SODIUM 136 mmol/L (136-145); TCO2 35 mmol/L (25-35); TOTAL BILIRUBIN 0.28 mg/dL (0.20-1.00); TOTAL PROTEIN 6.5 g/dL (6.3-8.3)
[2017-03-18 08:37] LABS: BANDS 10 % (0-1); EOS 2 % (1-10); LYMPHS 20 % (21-51); MONO 12 % (1-9)
[2017-03-18 08:38] LABS: HYPOCHROM 1+
[2017-03-18] MEDS: LANTUS SUBQ SCH (09:01)
[2017-03-18] MEDS: LASIX IV SCH (09:02)
[2017-03-18] MEDS: LOVENOX SUBQ SCH (09:02)
[2017-03-18] MEDS: KLOR-CON PO SCH ×2 (09:03→20:11)
[2017-03-18] MEDS: CYMBALTA PO SCH ×2 (09:03→20:11)
[2017-03-18] MEDS: NIASPAN PO SCH ×2 (09:03→20:11)
[2017-03-18] MEDS: PRILOSEC PO SCH (09:03)
[2017-03-18] MEDS: ZITHROMAX PO SCH (09:05)
[2017-03-18] MEDS: ASPIRIN PO SCH (09:07)
--- NOTE | 2017-03-18 09:10 | PROGRESS NOTE ---
DATE: 03/18/2017 SUBJECTIVE: Mr. Cameron is doing better. He denied any chest pain, palpitations. No unusual cough or expectoration. Denied any nausea or vomiting. Oral intake is fair. The patient is getting treatment for pneumonia. The patient also had a UTI. OBJECTIVE: Vital signs: Reviewed. Neck: Supple. No JVD. Lungs: Bibasilar crepitations. Heart: S1 and S2. Irregularly irregular. Abdomen: Soft, globular. Bowel sounds present. 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 Answering questions well. Extremities: The patient does have diffuse atrophy both lower limbs. Evidence of stasis dermatitis. CONSIDERATION: 1. Bilateral pneumonia. 2. Urinary tract infection. 3. Diabetes mellitus. 4. History of renal cell cancer status post left nephrectomy. 5. Diabetes mellitus. LAB DATA: Done today, hemoglobin 8.2, hematocrit 28.9, platelet count 385,000. WBC count 6.11. Electrolytes were fairly benign. PLAN: We will continue current treatment and close observation. Cash Crop Farmer and ID specialist are following the patient with us. cc: MD Moreno Henning MD
[2017-03-18] MEDS: ROCEPHIN 2 GM/NS 2 GM/50 ML IVPB IV SCH (15:03)
[2017-03-19] MEDS: NITROGLYCERIN TOP SCH ×4 (03:35→21:08)
[2017-03-19] MEDS: LOPRESSOR PO SCH ×3 (03:36→21:08)
[2017-03-19] MEDS: HUMULIN R SUBQ SCH ×4 (06:29→21:08)
--- NOTE | 2017-03-19 06:50 | PROGRESS NOTE ---
DATE: 03/19/2017 PRESENT ILLNESS: The patient has bilateral pneumonia and an Escherichia coli urinary tract infection. MEDICATION: This is day 8 of treatment with Rocephin and azithromycin. PHYSICAL EXAMINATION: Vital Signs: Temperature is 97.6 degrees, pulse 85, respirations 20, blood pressure 144/86. Generally: This is an obese, middle-aged male. He is sleeping right now with a BiPAP mask in place. Cardiovascular: Regular heart rate. Lungs: Clear to auscultation. Abdomen: Soft and nontender. Legs: Patient is edematous. He has brown discoloration of his distal legs. LAB AND X-RAY: There is no new x-ray for today. The patient's lab work shows a CBC with a white count of 6110, hemoglobin 8.2, and platelet count 385,000. Creatinine is 1, GFR is greater than 60. ASSESSMENT AND PLAN: The patient has pneumonia and a urinary tract infection. I think he is getting better and possibly could be transferred to whatever facility he is in on an oral antibiotic regimen such as a Ceftin 500 mg by mouth every 12 hours. Also, we could continue azithromycin by mouth in addition to switching him to Ceftin by mouth. COMORBIDITIES: Include morbid obesity, diabetes mellitus, and a history of renal cell carcinoma with which the patient underwent nephrectomy. cc: MD Moreno Way MD
[2017-03-19] MEDS: LANTUS SUBQ SCH (08:24)
[2017-03-19] MEDS: PRILOSEC PO SCH (08:25)
[2017-03-19] MEDS: LOVENOX SUBQ SCH (08:25)
[2017-03-19] MEDS: CYMBALTA PO SCH ×2 (08:26→21:08)
[2017-03-19] MEDS: KLOR-CON PO SCH ×2 (08:26→21:08)
[2017-03-19] MEDS: NIASPAN PO SCH ×2 (08:26→22:53)
[2017-03-19] MEDS: ASPIRIN PO SCH (08:27)
[2017-03-19] MEDS: ZITHROMAX PO SCH (08:27)
[2017-03-19] MEDS: LASIX IV SCH (08:27)
[2017-03-19] MEDS: ROCEPHIN 2 GM/NS 2 GM/50 ML IVPB IV SCH (15:31)
[2017-03-20] MEDS ORDERED: PNEUMOVAX 23 IM ONE (02:09)
[2017-03-20] MEDS: NITROGLYCERIN TOP SCH ×4 (03:08→20:24)
[2017-03-20] MEDS: HUMULIN R SUBQ SCH ×4 (06:43→20:23)
--- NOTE | 2017-03-20 07:06 | PROGRESS NOTE ---
DATE: 03/20/2017 PRESENT ILLNESS: The patient has an Escherichia coli urinary tract infection and bilateral pneumonia. MEDICATIONS: The patient has been receiving Rocephin and azithromycin for 9 days. PHYSICAL EXAMINATION: Vital Signs: Temperature is 97.8 degrees, pulse 89, respirations 23, blood pressure 134/61. General: This is an obese, middle-aged male who is wearing a BiPAP mask and has sleep apnea. Lungs: Clear to auscultation. Cardiovascular: Regular heart rate. Abdomen: Soft and nontender. Extremities: Legs are edematous and have brown discoloration distally. LAB AND X-RAY: The patient's CBC today shows a white count of 6110, hemoglobin 8.2 and platelet count 385,000. Creatinine is 1.0. GFR is greater than 60. Liver function studies are normal. No new radiographic study has been ordered for today. ASSESSMENT AND PLAN: The patient has pneumonia and urinary tract infection. As mentioned yesterday, I think the patient can be sent out on Ceftin 500 mg every 12 hours and azithromycin 500 mg daily by mouth for another week of treatment. COMORBIDITY: Includes morbid obesity, diabetes mellitus, and a history of renal cell carcinoma for which the patient had a nephrectomy. cc: MD Moreno Way MD
[2017-03-20] MEDS: CYMBALTA PO SCH ×2 (08:03→20:23)
[2017-03-20] MEDS: LASIX PO SCH (08:04)
[2017-03-20] MEDS: LOPRESSOR PO SCH ×2 (08:04→20:24)
[2017-03-20] MEDS: ASPIRIN PO SCH (08:04)
[2017-03-20] MEDS: NIASPAN PO SCH ×2 (08:04→20:24)
[2017-03-20] MEDS: ZITHROMAX PO SCH (08:04)
[2017-03-20] MEDS: PRILOSEC PO SCH (08:04)
[2017-03-20] MEDS: LOVENOX SUBQ SCH (08:05)
[2017-03-20] MEDS: KLOR-CON PO SCH ×2 (08:05→20:24)
[2017-03-20] MEDS: LANTUS SUBQ SCH (08:06)
--- NOTE | 2017-03-20 09:23 | PROGRESS NOTE ---
DATE: 03/20/2017 Mr. Cameron is doing better. His blood sugar is still out of control. He is getting a chest x-ray. His lungs reveal continuing bilateral congestion. Vital signs are stable. We will continue with the current management on him. -0 cc: Moreno Sepulveda MD
--- NOTE | 2017-03-20 10:00 | Diag Imaging Result Document ---
PROCEDURE NAME: CHEST-2 VIEWS - 03/20/2017 SEATED AP AND LATERAL RADIOGRAPH OF THE CHEST: COMPARISON: 03/16/2017. FINDINGS: Right chest port is in stable position. The bilateral infiltrates seen at the lung bases continue to improve slightly. No new consolidations are identified. Cardiomegaly is stable. IMPRESSION: Interval slight improvement of bilateral infiltrates at the bases.
--- NOTE | 2017-03-20 11:22 | CONSULTATION ---
DATE OF CONSULTATION: 03/09/2017 ADMITTING PHYSICIAN: PRIMARY CARE PROVIDER: Dr. Moreno Sepulveda ONCOLOGIST: Dr. Miah Meraz We appreciate this consult. CHIEF COMPLAINT: Shortness of breath. HISTORY OF PRESENT ILLNESS: Mr. Cameron is a 61-year-old, male, well known to us with a history of renal cell carcinoma currently on Torisel with last treatment being 03/06/2017. The patient presented to [facility] Emergency Department secondary to significant shortness of breath that had been progressively worsening over the prior several days. He states that he had congestion and sinus trouble as well. The patient was evaluated in the emergency department and was found to have pulmonary edema. He was placed on BiPAP and given IV diuretics with some improvement. He was admitted for acute congestive heart failure exacerbation. We are consulted to follow along. PAST MEDICAL HISTORY: 1. Diabetes mellitus, type 2. 2. Renal cell carcinoma. 3. Hypertension. 4. Bilateral DVT. 5. Morbid obesity. PAST SURGICAL HISTORY: 1. Left nephrectomy. 2. Sinus surgery. MEDICATIONS ON ADMISSION: Listed in the patient's MAR. ALLERGIES: Penicillin and fentanyl. FAMILY HISTORY: Negative for any hematologic or oncologic disease. SOCIAL HISTORY: The patient has a history of smoking cigarettes. He has no history of alcohol or illicit drug use. REVIEW OF SYSTEMS: A 14 point review of systems was obtained and is negative except as mentioned in HPI. PHYSICAL EXAMINATION: General: Mr. Cameron is a pleasant 61-year-old, morbidly obese male lying supine in bed wearing BiPAP and slightly dyspneic. Vital Signs: Temperature 100.1, blood pressure 112/81, heart rate 118, respirations 24, O2 saturation is 97% on BiPAP. HEENT: Normocephalic, atraumatic. Mucous membranes are somewhat pale and dry. Sclerae is anicteric. Extraocular movements intact. Neck: Supple. Lungs: Clear to auscultation bilaterally. Chest expansion is equal bilaterally. CV: S1, S2 is heard without murmur rub or gallop. Abdomen: Soft, nondistended, nontender. Bowel sounds are decreased throughout. Extremities: With 2 to 3+ bilateral lower extremity edema. Dermatologic: No rashes, bruises or lesions. Neurologic: The patient is somnolent at this time. He is oriented x3. LABORATORY DATA: Hemoglobin 9.3, hematocrit 31.2, white blood cell count is 11.00, platelets 407,000. ANC 9.24. INR 1.28. Sodium 133, potassium 4.5, chloride 93, CO2 is 27, BUN 16, creatinine 1.1. Glucose 238. LFTs are within normal limits. ProBNP is 9788. Troponins are 0.162 CK is 133. Urinalysis is negative for UTI. Cultures are pending. Blood cultures are pending. IMAGING STUDIES: CT of the head is negative for any acute abnormality. Chest x-ray reveals cardiomegaly and pulmonary edema. ASSESSMENT AND PLAN: 1. Renal cell carcinoma. Currently on Torisel with last treatment being 03/06/2017. We will hold any further treatment until acute illness passes. 2. Acute congestive heart failure exacerbation. Currently on Lasix and BiPAP. 3. Pulmonary edema. The patient is currently dyspneic on BiPAP. Plan as per problem #2. 4. Elevated troponin. Cardiology is currently following with workup in progress. 5. History of bilateral deep venous thrombosis. The patient will continue on Xarelto. We will continue to monitor closely. 6. Hypertension. Well controlled on antihypertensive at this time. We will follow along and make further recommendations pending outcomes. Dictated by MARICARMEN Means for Miah Meraz MD cc: MARICARMEN Means MD Amit V. Vora, MD
[2017-03-20] MEDS: ROCEPHIN 2 GM/NS 2 GM/50 ML IVPB IV SCH (17:00)
[2017-03-21] MEDS: NITROGLYCERIN TOP SCH ×4 (03:58→22:44)
[2017-03-21 05:31] LABS: AGAP 8; BUN 19 mg/dL (8-22); CHLORIDE 95 mmol/L (98-107); COSMO 279; POTASSIUM 5.3 mmol/L (3.5-5.1); SODIUM 136 mmol/L (136-145); TCO2 33 mmol/L (25-35)
[2017-03-21] MEDS: HUMULIN R SUBQ SCH ×4 (06:43→22:41)
[2017-03-21 06:52] LABS: BASO% 0.7 % (0.0-0.8); EOS# 0.19 X1000 (0.0-0.7); EOS% 2.8 % (0.0-10.0); HEMATOCRIT 24.9 % (42.0-52.0); HEMOGLOBIN 6.9 g/dL (14.0-18.0); IMM GRAN# 0.23 X1000 (0.0-0.04); IMM GRAN% 3.4 % (0.0-0.5); LYMPH# 1.18 X1000 (1.2-3.4); LYMPH% 17.7 % (20.5-51.1); MANUAL DIFF NEEDED? NO; MCH 26.4 PG (27-31); MCHC 27.7 g/dL (33-37); MCV 95.4 FL (81-99); MONO# 0.66 X1000 (0.11-0.59); MONO% 9.9 % (1.7-9.3); MPV 8.9 FL (7.4-10.4); NEUT% 65.5 % (42.2-75.2); PLT 531 X1000 (130-400); RBC 2.61 XMIL (4.7-6.1)
--- NOTE | 2017-03-21 07:07 | PROGRESS NOTE ---
DATE: 03/21/2017 PRESENT ILLNESS: The patient has bilateral pneumonia and an E coli urinary tract infection. MEDICATIONS: He is on Rocephin and azithromycin. This is day 9 of treatment with the agents. PHYSICAL EXAMINATION: Vital Signs: Temperature is 97.6 degrees, pulse 82, respirations 20, blood pressure 144/58. General: This is an obese, middle-aged male. He is in no acute distress. He is wearing a BiPAP mask. Lungs: Clear to auscultation. Cardiovascular: Regular heart rate. Abdomen: Soft and nontender. Neurologic: The patient is arousable. He can move his extremities. LAB AND X-RAY: There is no new x-ray for today. The patient had a creatinine today of 0.9. The GFR is greater than 60. The patient had a Clostridium difficile toxin run on his stool and it was negative. ASSESSMENT AND PLAN: The patient has pneumonia and urinary tract infection. When he leaves the hospital, I think it would be reasonable to treat him with Ceftin 500 mg p.o. every 12 hours by mouth, and azithromycin 500 mg by mouth each for another week. Our plan now is to get a CBC for 4 this morning. COMORBIDITIES: Include obesity, diabetes mellitus and post nephrectomy for renal cell carcinoma. cc: MD Moreno Way MD
[2017-03-21] MEDS: KLOR-CON PO SCH ×2 (08:02→22:41)
[2017-03-21] MEDS: LASIX PO SCH (08:02)
[2017-03-21] MEDS: PRILOSEC PO SCH (08:02)
[2017-03-21] MEDS: ZITHROMAX PO SCH (08:02)
[2017-03-21] MEDS: ASPIRIN PO SCH (08:02)
[2017-03-21] MEDS: LOPRESSOR PO SCH ×2 (08:02→22:43)
[2017-03-21] MEDS ORDERED: LASIX IV SCH (09:00)
--- NOTE | 2017-03-21 09:42 | PROGRESS NOTE ---
DATE: 03/21/2017 SUBJECTIVE: Mr. Cameron is feeling better. His lungs sound somewhat improved. Chest x-ray shows improvement. CBC shows hemoglobin of 6.9, hematocrit 24.9, his potassium is 5.3. We will transfuse 2 units of packed RBCs. The C. difficile test is negative. We will also give Lasix after the transfusions are done. Overall condition is improving. -6 cc: Moreno Sepulveda MD
[2017-03-21] MEDS: LOVENOX SUBQ SCH (10:04)
[2017-03-21] MEDS: CYMBALTA PO SCH ×2 (10:05→22:43)
[2017-03-21] MEDS: LANTUS SUBQ SCH (10:06)
[2017-03-21] MEDS: NIASPAN PO SCH ×2 (10:06→22:45)
[2017-03-21] MEDS ORDERED: NS 500 ML ONE (13:40)
[2017-03-21] MEDS: ROCEPHIN 2 GM/NS 2 GM/50 ML IVPB IV SCH (15:35)
[2017-03-22] MEDS: NITROGLYCERIN TOP SCH ×4 (03:03→20:34)
[2017-03-22 05:26] LABS: MANUAL DIFF NEEDED? NO
[2017-03-22 06:15] LABS: BASO% 0.5 % (0.0-0.8); EOS# 0.15 X1000 (0.0-0.7); HEMATOCRIT 32.2 % (42.0-52.0); HEMOGLOBIN 9.7 g/dL (14.0-18.0); IMM GRAN# 0.25 X1000 (0.0-0.04); IMM GRAN% 3.3 % (0.0-0.5); LYMPH# 1.18 X1000 (1.2-3.4); LYMPH% 15.5 % (20.5-51.1); MCH 27.6 PG (27-31); MCHC 30.1 g/dL (33-37); MCV 91.5 FL (81-99); MONO% 6.6 % (1.7-9.3); MPV 8.8 FL (7.4-10.4); NEUT% 72.1 % (42.2-75.2); PLT 600 X1000 (130-400); RBC 3.52 XMIL (4.7-6.1)
[2017-03-22] MEDS: HUMULIN R SUBQ SCH ×4 (06:22→20:45)
[2017-03-22 07:06] LABS: AGAP 15; BUN 18 mg/dL (8-22); CALCIUM 9.8 mg/dL (8.8-10.2); CHLORIDE 89 mmol/L (98-107); COSMO 274; POTASSIUM 4.6 mmol/L (3.5-5.1); SODIUM 132 mmol/L (136-145); TCO2 28 mmol/L (25-35)
--- NOTE | 2017-03-22 07:22 | PROGRESS NOTE ---
DATE: 03/22/2017 PRESENT ILLNESS: The patient is being treated for bilateral pneumonia and an Escherichia coli urinary tract infection. The urinary tract infection treatment has been completed for that. MEDICATIONS: This is day 10 of treatment with a combination of Rocephin and azithromycin. PHYSICAL EXAMINATION: Vital Signs: Temperature is 96.7 degrees, pulse 77, respirations 18, blood pressure 125/69. General: This is an obese middle-aged male who is in no acute distress. Lungs clear to auscultation. Cardiovascular: Regular heart rate. Abdomen soft and nontender. Legs: There is edema with brown discoloration of both legs distally. Chest: The patient has a Port-A- Cath present on the right side. The site is not swollen or erythematous. LABORATORY DATA AND X-RAY: The patient's CBC for today shows a white count of 7600, hemoglobin 9.7, and platelet count 600,000. The Clostridium difficile toxin is negative. ASSESSMENT AND PLAN: The patient has pneumonia for which he is on Rocephin and azithromycin. Conceivably, he could go home on those 2 antibiotics and be treated for another 4 days with them. This is the 10th day of treatment with both Rocephin and azithromycin. The patient's comorbidity includes obesity, diabetes mellitus, post nephrectomy for renal cell carcinoma. cc: MD Moreno Way MD
[2017-03-22] MEDS: ZITHROMAX PO SCH (09:00)
[2017-03-22] MEDS: LOVENOX SUBQ SCH (09:00)
[2017-03-22] MEDS: LASIX PO SCH (09:00)
[2017-03-22] MEDS: CYMBALTA PO SCH ×2 (09:01→20:34)
[2017-03-22] MEDS: PRILOSEC PO SCH (09:01)
[2017-03-22] MEDS: KLOR-CON PO SCH ×2 (09:01→20:34)
[2017-03-22] MEDS: NIASPAN PO SCH ×2 (09:01→21:39)
[2017-03-22] MEDS: ASPIRIN PO SCH (09:02)
[2017-03-22] MEDS: LOPRESSOR PO SCH ×2 (09:02→20:34)
[2017-03-22] MEDS: LANTUS SUBQ SCH (09:05)
--- NOTE | 2017-03-22 09:33 | PROGRESS NOTE ---
DATE: 03/22/2017 SUBJECTIVE: Mr. Cameron is doing better. He received 2 units of packed RBCs yesterday. His hemoglobin has come up to around 9.7, hematocrit 32.2. He is recovering from pneumonia. He is on azithromycin, as well as IV Rocephin. Today they indicate that they want to go to rehabilitation. He is about ready to be discharged. We will make arrangements for rehabilitation at [facility]. cc: Moreno Sepulveda MD
[2017-03-22] MEDS: ROCEPHIN 2 GM/NS 2 GM/50 ML IVPB IV SCH (15:36)
[2017-03-22] MEDS: NORCO-10 PO PRN (20:41)
[2017-03-23] MEDS: NITROGLYCERIN TOP SCH ×4 (02:51→21:15)
[2017-03-23] MEDS: HUMULIN R SUBQ SCH ×4 (06:19→21:15)
[2017-03-23] MEDS ORDERED: LEVAQUIN PO ONE (06:28)
[2017-03-23] MEDS: LANTUS SUBQ SCH (08:06)
[2017-03-23] MEDS: LASIX PO SCH (08:06)
[2017-03-23] MEDS: KLOR-CON PO SCH ×2 (08:06→21:14)
[2017-03-23] MEDS: PRILOSEC PO SCH (08:07)
[2017-03-23] MEDS: LEVAQUIN PO SCH (08:07)
[2017-03-23] MEDS: LOVENOX SUBQ SCH (08:07)
[2017-03-23] MEDS: CYMBALTA PO SCH ×2 (08:08→21:14)
[2017-03-23] MEDS: LOPRESSOR PO SCH ×2 (08:08→21:14)
[2017-03-23] MEDS: ASPIRIN PO SCH (08:09)
[2017-03-23] MEDS: NIASPAN PO SCH ×2 (08:09→21:15)
--- NOTE | 2017-03-23 08:51 | PROGRESS NOTE ---
DATE: 03/23/2017 PRESENT ILLNESS: The patient is being treated for a bilateral pneumonia. The patient had an urinary tract infection and has completed treatment on that. MEDICATIONS: This is day 11 of a combination of Rocephin and azithromycin. PHYSICAL EXAMINATION: Vital Signs: Temperature is 97.3 degrees, pulse 76, respirations 16, blood pressure 137/98. General: This is an obese, middle-aged male who is in no acute distress. Lungs: Clear to auscultation. Cardiovascular: Regular heart rate. Abdomen: Soft and nontender. Neurologic: Patient is alert. He can move his extremities. LAB AND X-RAY DATA: The patient does not have any lab or radiographic study for today. ASSESSMENT AND PLAN: It is my understanding the patient will be discharged today. I would suggest treating him with Levaquin 500 mg daily for another 4 days, to complete his treatment for pneumonia. I am going to go ahead and start the patient on Levaquin today just to make sure that he handles it well. COMORBIDITIES: Include obesity, diabetes mellitus, and nephrectomy for renal cell carcinoma. cc: MD Moreno Way MD MTDD
--- NOTE | 2017-03-23 11:19 | PROGRESS NOTE ---
DATE: 03/23/2017 SUBJECTIVE: Mr. Cameron is in about the same general condition. He continues to have some pulmonary congestion. He has had some generalized itching for a short time; however, it is gone. He is doing well. OBJECTIVE: Vital signs: Stable. ASSESSMENT AND PLAN: We are looking for a rehab placement for him for the time being. On account of his insurance, we still are not sure whether we will get placement today or not. We are going to wait until we get placement. In the meantime, we will continue the Levaquin as ordered by Dr. Beckford which we will continue for 4 more days. cc: Moreno Sepulveda MD
[2017-03-24] MEDS: NITROGLYCERIN TOP SCH ×4 (02:50→20:45)
[2017-03-24] MEDS: HUMULIN R SUBQ SCH ×4 (07:00→20:45)
[2017-03-24] MEDS: NORCO-10 PO PRN (08:07)
[2017-03-24] MEDS: KLOR-CON PO SCH ×2 (08:09→20:44)
[2017-03-24] MEDS: LASIX PO SCH (08:09)
[2017-03-24] MEDS: LEVAQUIN PO SCH (08:09)
[2017-03-24] MEDS: LOPRESSOR PO SCH ×2 (08:09→20:44)
[2017-03-24] MEDS: ASPIRIN PO SCH (08:09)
[2017-03-24] MEDS: PRILOSEC PO SCH (08:10)
[2017-03-24] MEDS: NIASPAN PO SCH ×2 (08:10→20:44)
[2017-03-24] MEDS: LOVENOX SUBQ SCH (08:11)
[2017-03-24] MEDS: LANTUS SUBQ SCH (08:13)
[2017-03-24] MEDS: CYMBALTA PO SCH ×2 (08:17→20:44)
--- NOTE | 2017-03-24 11:18 | PROGRESS NOTE ---
DATE: 03/24/2017 SUBJECTIVE: Mr. Cameron is recovering from pneumonia. He is awaiting a rehab bed. [facility] did not take his insurance, and we are working for transferring him to [facility]. He was seen by [facility] personnel, who suggested OT consult which was offered to him yesterday. He has some oral stomatitis and we will give him swish and swallow with nystatin 5 mL t.i.d. -6 cc: Moreno Sepulveda MD
[2017-03-24] MEDS: MYCOSTATIN SUSP PO SCH ×3 (17:06→20:44)
[2017-03-25] MEDS: NITROGLYCERIN TOP SCH ×4 (03:54→20:34)
[2017-03-25] MEDS: HUMULIN R SUBQ SCH ×4 (06:30→20:57)
[2017-03-25] MEDS ORDERED: INSULIN PEN NEEDLES ONE (08:21)
[2017-03-25] MEDS: MYCOSTATIN SUSP PO SCH ×4 (08:23→21:00)
[2017-03-25] MEDS: LOVENOX SUBQ SCH (08:23)
[2017-03-25] MEDS: LOPRESSOR PO SCH ×2 (08:24→20:36)
[2017-03-25] MEDS: KLOR-CON PO SCH ×2 (08:24→20:35)
[2017-03-25] MEDS: LEVAQUIN PO SCH (08:24)
[2017-03-25] MEDS: ASPIRIN PO SCH (08:25)
[2017-03-25] MEDS: PRILOSEC PO SCH (08:25)
[2017-03-25] MEDS: CYMBALTA PO SCH ×2 (08:25→20:35)
[2017-03-25] MEDS: NIASPAN PO SCH ×2 (08:25→20:34)
[2017-03-25] MEDS: LASIX PO SCH (08:25)
[2017-03-25] MEDS: LANTUS SUBQ SCH (08:26)
--- NOTE | 2017-03-25 18:33 | PROGRESS NOTE ---
DATE: 03/25/2017 Mr. Acevedo is doing fairly well. His vital signs are stable. Blood sugar is still fluctuating. We will continue with the current management on him. We are waiting for usp placement or rehab placement at [facility]. -8 cc: Moreno Sepulveda MD
[2017-03-25] MEDS: NORCO-10 PO PRN (21:51)
[2017-03-26] MEDS ORDERED: BENADRYL IV ONE (00:07)
[2017-03-26] MEDS: NITROGLYCERIN TOP SCH ×4 (04:00→20:38)
[2017-03-26 05:23] LABS: MANUAL DIFF NEEDED? NO
[2017-03-26 05:35] LABS: BASO% 1.9 % (0.0-0.8); EOS# 0.14 X1000 (0.0-0.7); EOS% 2.4 % (0.0-10.0); HEMOGLOBIN 8.4 g/dL (14.0-18.0); IMM GRAN# 0.17 X1000 (0.0-0.04); IMM GRAN% 2.9 % (0.0-0.5); LYMPH# 1.36 X1000 (1.2-3.4); LYMPH% 22.9 % (20.5-51.1); MCH 27.6 PG (27-31); MCV 95.4 FL (81-99); MONO# 0.44 X1000 (0.11-0.59); MONO% 7.4 % (1.7-9.3); MPV 8.4 FL (7.4-10.4); NEUT% 62.5 % (42.2-75.2); PLT 526 X1000 (130-400); RBC 3.04 XMIL (4.7-6.1)
[2017-03-26 05:39] LABS: AGAP 11; BUN 15 mg/dL (8-22); CALCIUM 9.6 mg/dL (8.8-10.2); CHLORIDE 94 mmol/L (98-107); COSMO 279; SODIUM 137 mmol/L (136-145); TCO2 32 mmol/L (25-35)
[2017-03-26] MEDS: HUMULIN R SUBQ SCH ×4 (06:22→20:38)
--- NOTE | 2017-03-26 06:52 | PROGRESS NOTE ---
DATE: 03/26/2017 PRESENT ILLNESS: The patient is being treated currently for a bilateral pneumonia. Previously, he had received treatment for a urinary tract infection. MEDICATIONS: This is day 14 of treatment with antibiotics. The current antibiotic that the patient is on is Levaquin. PHYSICAL EXAMINATION: Vital Signs: Temperature is 97.7 degrees, pulse 75, respirations 18, blood pressure 152/94. General: This is an obese, middle-aged male. He is in no acute distress. He is wearing his BiPAP mask at this time. Lungs: Clear to auscultation. Cardiovascular: Regular heart rate. Abdomen: Soft and nontender. Chest: The patient has a Port-A-Cath in place. The site is not swollen or erythematous. LAB AND X-RAY: There is no new x-ray. The patient's lab shows a CBC with a white count of 5940, hemoglobin 8.4, and platelet count 526,000. The patient's creatinine is 1.2. GFR is greater than 60. ASSESSMENT AND PLAN: The patient is being treated for pneumonia. My plan is to continue Levaquin. I have ordered a chest x-ray and if it shows the pneumonia has cleared, I will stop Levaquin. COMORBIDITIES: Include obesity, diabetes mellitus, and a nephrectomy for renal cell carcinoma. cc: MD Moreno Way MD
--- NOTE | 2017-03-26 08:48 | Diag Imaging Result Document ---
PROCEDURE NAME: CHEST-1 VIEW - 03/26/2017 PORTABLE CHEST X-RAY: COMPARISON: 03/20/2017. FINDINGS: Stable right chest port. Stable cardiomegaly and pulmonary vascular congestion. There is worsening central infiltrates bilaterally compatible with pulmonary edema. IMPRESSION: Worsening pulmonary edema.
[2017-03-26] MEDS: LOVENOX SUBQ SCH (08:50)
[2017-03-26] MEDS: MYCOSTATIN SUSP PO SCH ×4 (09:11→20:41)
[2017-03-26] MEDS: LANTUS SUBQ SCH (09:12)
[2017-03-26] MEDS: NIASPAN PO SCH ×2 (09:13→20:39)
[2017-03-26] MEDS: CYMBALTA PO SCH ×2 (09:13→20:39)
[2017-03-26] MEDS: PRILOSEC PO SCH (09:14)
[2017-03-26] MEDS: KLOR-CON PO SCH ×2 (09:14→20:39)
[2017-03-26] MEDS: ASPIRIN PO SCH (09:14)
[2017-03-26] MEDS: LEVAQUIN PO SCH (09:14)
[2017-03-26] MEDS: LASIX PO SCH (09:14)
[2017-03-26] MEDS: LOPRESSOR PO SCH ×2 (09:14→20:38)
[2017-03-26] MEDS ORDERED: LASIX IV ONE (09:23)
--- NOTE | 2017-03-26 10:06 | PROGRESS NOTE ---
DATE: 03/26/2017 Mr. Cameron is about the same, in the same general condition. He had some allergic reaction last night to Lortab. He was given Benadryl IV. He just had generalized itching. His breathing is about the same. However, the chest x-ray done this morning shows worsening of the pulmonary edema. We will give him some Lasix 20 mg IV now. Overall condition is unchanged. We are waiting for the rehab bed at [facility]. We have not heard from them yet. cc: Moreno Sepulveda MD
[2017-03-26] MEDS: NORCO-10 PO PRN (20:52)
[2017-03-27] MEDS: NITROGLYCERIN TOP SCH ×4 (02:17→20:41)
--- NOTE | 2017-03-27 05:38 | DISCHARGE SUMMARY ---
ADMISSION DATE: 03/08/2017 DISCHARGE DATE: TENTATIVE DATE OF DISCHARGE: Probably 03/27/2017. HISTORY OF PRESENT ILLNESS: Mr. Cameron, who is a 61-year-old, white gentleman, had known case of hypertension, recurrent DVT, renal cell carcinoma who has undergone nephrectomy, recurrent anemia, was admitted with change in the mental status and shortness of breath. His lab data revealed a CT scan of the brain that revealed chronic microvascular changes. No hemorrhage. CT scan of the chest revealed cardiomegaly, pulmonary edema, and small effusion and multifocal bilateral infiltrates. Chest x-ray showed pulmonary edema. CBC revealed severe anemia. Hemoglobin had gone down to 6.9. He was transfused 2 units at that juncture. INR 1.28. ABGs were done several times and he had some CO2 retention but pCO2 went up to 67. Chemistry had revealed normal electrolytes. The BUN and creatinine were normal. Glucose was fluctuating, staying around 250. Initial C-reactive protein was high. Actually, when he came in, his proBNP was 9788. Magnesium was 2.1. COURSE IN THE HOSPITAL: He was given IV antibiotics, azithromycin as well as Rocephin 2 g later on. He has been given Levaquin lately for the last 3-4 days. General condition has improved. He has been standing up and taking a few steps in his rehab. Awaiting for the rehab bed, decision at [facility]. FINAL DIAGNOSES: 1. Bilateral pneumonia. 2. Bilateral pleural effusion. 3. Congestive heart failure. 4. Patient has recurrent deep venous thrombosis. 5. Severe anemia. 6. History of renal cell carcinoma. PLAN: We will continue with the current management on him. cc: Moreno Sepulveda MD
[2017-03-27] MEDS: HUMULIN R SUBQ SCH ×4 (07:28→20:58)
--- NOTE | 2017-03-27 07:33 | PROGRESS NOTE ---
DATE: 03/27/2017 PRESENT ILLNESS: The patient is being treated currently for bilateral pneumonia. He is on Levaquin. MEDICATIONS: This is day 15 of treatment with the patient's antibiotics, the current one being Levaquin. PHYSICAL EXAMINATION: Vital Signs: Temperature is 97 degrees, pulse 76, respirations 18, blood pressure 131/59. General: This is a chronically ill-appearing, middle-aged male. He is wearing his BiPAP mask currently. Lungs: Clear to auscultation. Cardiovascular: Today, when I listened to the heart, it was irregular. Abdomen: Soft and nontender. Chest: The patient's Port-A-Cath site is not erythematous or draining. LAB AND X-RAY: Chest x-ray shows worsening pulmonary edema. There is no mention made of pneumonia. The patient's CBC shows a white count of 5940, hemoglobin 8.4 and platelet count 526,000. Creatinine is 1.2. GFR is greater than 60. ASSESSMENT AND PLAN: The patient has completed his treatment for pneumonia. It appears that the patient's abnormal chest x-ray is due to pulmonary edema but not pneumonia. I plan to stop the Levaquin today. I do not think the patient needs any further antibiotics. COMORBIDITIES: Include obesity, diabetes mellitus and nephrectomy for renal cell carcinoma. I am signing off now. I am available to see the patient on a p.r.n. basis. cc: MD Moreno Way MD
[2017-03-27] MEDS: LOVENOX SUBQ SCH (08:41)
[2017-03-27] MEDS: LASIX PO SCH (08:41)
[2017-03-27] MEDS: ASPIRIN PO SCH (08:42)
[2017-03-27] MEDS: LOPRESSOR PO SCH ×2 (08:42→20:41)
[2017-03-27] MEDS: PRILOSEC PO SCH (08:42)
[2017-03-27] MEDS: KLOR-CON PO SCH ×2 (08:42→20:40)
[2017-03-27] MEDS: CYMBALTA PO SCH ×2 (08:42→20:42)
[2017-03-27] MEDS: NIASPAN PO SCH ×2 (08:42→20:42)
[2017-03-27] MEDS: LANTUS SUBQ SCH (08:43)
[2017-03-27] MEDS: MYCOSTATIN SUSP PO SCH ×4 (08:43→20:41)
--- NOTE | 2017-03-27 09:13 | PROGRESS NOTE ---
DATE: 03/27/2017 Mr. Cameron had some pulmonary congestion. Yesterday, he was given IV Lasix. He is feeling better. Lungs sound much better. His antibiotic course is off. He is getting is the OT evaluation today. After that, it will be decided whether he goes to [facility] or not. cc: Moreno Sepulveda MD
[2017-03-28] MEDS: NITROGLYCERIN TOP SCH ×4 (03:09→21:17)
[2017-03-28] MEDS: HUMULIN R SUBQ SCH ×4 (06:32→21:15)
[2017-03-28] MEDS: CYMBALTA PO SCH ×2 (09:10→21:17)
[2017-03-28] MEDS: LOPRESSOR PO SCH ×2 (09:10→21:17)
[2017-03-28] MEDS: KLOR-CON PO SCH ×2 (09:11→21:17)
[2017-03-28] MEDS: ASPIRIN PO SCH (09:11)
[2017-03-28] MEDS: NIASPAN PO SCH ×2 (09:11→21:16)
[2017-03-28] MEDS: LOVENOX SUBQ SCH (09:11)
[2017-03-28] MEDS: LASIX PO SCH (09:11)
[2017-03-28] MEDS: PRILOSEC PO SCH (09:11)
[2017-03-28] MEDS: MYCOSTATIN SUSP PO SCH ×4 (09:12→21:18)
[2017-03-28] MEDS: LANTUS SUBQ SCH (09:12)
--- NOTE | 2017-03-28 09:21 | PROGRESS NOTE ---
DATE: 03/28/2017 Mr. Cameron is doing well. His lungs sound much clearer. Heart sounds are normal. Overall condition is unchanged. He is ready to be discharged or transferred to the [facility] or other rehabilitation facility. We are waiting for the transfer. cc: Moreno Sepulveda MD
[2017-03-29] MEDS: NITROGLYCERIN TOP SCH ×2 (03:16→09:17)
[2017-03-29] MEDS: HUMULIN R SUBQ SCH ×2 (06:16→12:00)
[2017-03-29] MEDS: NIASPAN PO SCH (09:13)
[2017-03-29] MEDS: MYCOSTATIN SUSP PO SCH (09:13)
[2017-03-29] MEDS: LANTUS SUBQ SCH (09:15)
[2017-03-29] MEDS: CYMBALTA PO SCH (09:15)
[2017-03-29] MEDS: LOVENOX SUBQ SCH (09:16)
[2017-03-29] MEDS: LOPRESSOR PO SCH (09:17)
[2017-03-29] MEDS: LASIX PO SCH (09:17)
[2017-03-29] MEDS: ASPIRIN PO SCH (09:17)
[2017-03-29] MEDS: KLOR-CON PO SCH (09:17)
[2017-03-29] MEDS: PRILOSEC PO SCH (09:18)
--- NOTE | 2017-03-29 09:21 | PROGRESS NOTE ---
DATE: 03/29/2017 Mr. Cameron is a 61-year-old, white gentleman, had pneumonia and congestive heart failure. He is to be transferred to [facility] for rehab. However, we have not gotten an okay from the insurance. This morning, when he took the BiPAP off, the oxygen level went down drastically. He is probably going to need BiPAP at home or wherever he goes. Overall condition is unchanged. cc: Moreno Sepulveda MD
[2017-03-29 10:47] VITALS: BP 108/65
--- NOTE | 2017-03-29 12:25 | DISCHARGE SUMMARY ---
ADMISSION DATE: 03/08/2017 DISCHARGE DATE: ADDENDUM: He was admitted for bilateral pneumonia and some evidence of congestive heart failure. He is better. He has a history of deep venous thrombosis in the past. History of insulin- dependent diabetes. Overall condition is unchanged. He has improved significantly; however, he needs a rehab. He is going to [facility] starting from today. cc: Moreno Sepulveda MD
== END 2017-03-29 12:52 ==
LOC: SUPCPDRO → ED 13:55 → SUPCPDRO 13:56 → SUATTDRO 13:56 → 3N 22:17 → EDIPHOLD 03-09 03:54 → ICU 03-09 13:14 → 3S 03-18 20:21
PROVIDERS: ADMIT Internal Medicine; ATTEND Internal Medicine